=== PATIENT | female | born 1965 | race Caucasian/White ===

== ENCOUNTER 2016-09-05 10:19 | Emergency (ER) | payer OTHER ==
[~2016-09-05] VITALS: Ht 160 cm; Wt 80.7 kg
[~2016-09-05 10:19] MED LIST: ALPR.25T PO; ALPR.5T PO; ALPR0.254 PO; ALPR0.5T PO; DCS100C PO; ESTR-2 PO; FLUC200T45 PO; HYDR-3714 PO; HYDR25TA4 PO; HYDR50TA3 PO; LEVO125T PO; LEVO175T5 PO; LISI10TA2 PO; LVT.15T PO; PANT40TA2 PO; SERT50TA2 PO; SNN187T PO; SRTR100T PO; SUCR1TAB36 PO; TRM50T PO
[2016-09-05] MEDS ORDERED: ONDANSETRON 4 MG/2 ML (SDV) Z0FRAN ONE (10:24)
[2016-09-05] MEDS ORDERED: NS IV 1000 ML 1,000 ML IV ONE (10:24)
[2016-09-05] MEDS ORDERED: KETOROLAC 30 MG/ML VIAL ONE (10:24)
[2016-09-05] MEDS ORDERED: ONDANSETRON 4 MG/2 ML (SDV) Z0FRAN IVP ONE (10:30)
[2016-09-05] MEDS ORDERED: KETOROLAC 30 MG/ML VIAL IVP ONE (10:30)
[2016-09-05 10:33] LABS: BASOPHILS % (AUTO) 0 % (0-10); EOSINOPHILS # (AUTO) 0.1 10^3/uL (0.0-0.3); EOSINOPHILS % (AUTO) 1 % (0-10); LYMPHOCYTES # (AUTO) 2.3 X 10^3 (1.0-4.0); LYMPHOCYTES % (AUTO) 22 % (12-44); MEAN CORPUSCULAR HEMOGLOBIN 28 PG (25-34); MEAN CORPUSCULAR HGB CONC 34 G/DL (32-36); MEAN CORPUSCULAR VOLUME 83 FL (80-99); MEAN PLATELET VOLUME 10.6 FL (7.4-10.4); MONOCYTES # (AUTO) 0.7 X 10^3 (0.0-1.0); MONOCYTES % (AUTO) 7 % (0-12); NEUTROPHILS # (AUTO) 7.3 X 10^3 (1.8-7.8); NEUTROPHILS % (AUTO) 70 % (42-75); PLATELET COUNT 274 10^3/uL (130-400); RED BLOOD COUNT 4.79 10^6/uL (4.35-5.85); RED CELL DISTRIBUTION WIDTH 13.7 % (10.0-14.5); WHITE BLOOD COUNT 10.4 10^3/uL (4.3-11.0)
[2016-09-05] MEDS ORDERED: fentaNYL INJECTION 100 MCG/2 ML AMP ONE (10:34)
[2016-09-05] MEDS ORDERED: fentaNYL INJECTION 100 MCG/2 ML AMP IVP ONE (10:45)
[2016-09-05] MEDS ORDERED: B/P MEDICATION PO (10:48)
[2016-09-05 10:49] LABS: ALANINE AMINOTRANSFERASE 17 U/L (0-55); ANION GAP 15 MMOL/L (5-14); ASPARTATE AMINO TRANSFERASE 16 U/L (5-34); BILIRUBIN,TOTAL 0.4 MG/DL (0.1-1.0); BLOOD UREA NITROGEN 14 MG/DL (7-18); BUN/CREATININE RATIO 21; CALCIUM 9.3 MG/DL (8.5-10.1); CARBON DIOXIDE 23 MMOL/L (21-32); CHLORIDE 104 MMOL/L (98-107); CREATININE SERUM 0.67 MG/DL (0.60-1.30); GFR ESTIMATED > 60; GLUCOSE 106 MG/DL (70-105); POTASSIUM 3.3 MMOL/L (3.6-5.0); SODIUM 142 MMOL/L (135-145); TOTAL PROTEIN 7.4 G/DL (6.4-8.2)
[2016-09-05 11:40] LABS: BILIRUBIN,URINE NEGATIVE (NEGATIVE); KETONES,URINE 1+ (NEGATIVE); LEUKOCYTE ESTERASE ,URINE 1+ (NEGATIVE); NITRITE,URINE NEGATIVE (NEGATIVE); PH,URINE 7 (5-9); PROTEIN,URINE 1+ (NEGATIVE); UROBILINOGEN,URINE NORMAL (NORMAL)
[2016-09-05] MEDS ORDERED: NS 100 ML (IVPB) BAG IV ONE (12:15)
[2016-09-05] MEDS ORDERED: IOHEXOL 350 MG/ML 100 ML (OMNIPAQUE 350) VIAL IV ONE (12:15)
--- NOTE | 2016-09-05 12:46 | Diagnostic Imaging Report ---
PROCEDURE: CT abdomen and pelvis with contrast. TECHNIQUE: Multiple contiguous axial images were obtained through the abdomen and pelvis after administration of intravenous contrast. INDICATION: Left-sided abdominal pain. UTI. COMPARISON: 07/05/2007 FINDINGS: Included views of the lung bases are clear. CT ABDOMEN: There is moderate asymmetric prominence of the right renal pelvis and calyces. The right ureter is relatively decompressed. Multiple nonobstructive right renal calculi are seen. No renal or ureteral calculi are seen on the left. Additionally, there is no hydroureteronephrosis or other evidence of obstruction on the left. No renal mass type lesions are identified on either side. The spleen, pancreas, adrenal glands, and liver have an unremarkable CT appearance. Small bowel loops are nondistended. Normal appendix cannot adequately identified, but there is no pericecal inflammation. Postsurgical changes of previous gastric lap band placement are identified. There is no loculated fluid collection, free fluid or free air within the abdomen. No abnormal mesenteric or retroperitoneal adenopathy is seen. Bony structures show no acute abnormalities. CT PELVIS: A small amount of free fluid is noted within the pelvis. There is no loculated fluid collection or free air. The urinary bladder is grossly unremarkable. The bony structures show no acute abnormality. IMPRESSION: 1. Asymmetric moderate prominence of the right renal pelvis and calyces with relative decompressed appearance of the right ureter. Findings could be on the basis of underlying UPJ obstruction. 2. Multiple nonobstructive right renal calculi are also noted. Other considerations include recently passed stone. Correlation with nuclear medicine Lasix exam may be of benefit. 3. A small amount of free fluid within the pelvis. Dictated by: Dictated on workstation # [id number]
--- NOTE | 2016-09-05 13:02 | ED Abdominal Pain ---
General Chief Complaint: Abdominal/GI Problems Stated Complaint: SEVERE ABD PAIN Nursing Triage Note: PT ARRIVED PER EMS, PT CO OF SEVERE L SIDED ABD PAIN W SUDDEN ONSET APPROX 1 HR AGO, PT STATES HAD HAD LAP BAND, HAD EPISODE OF SWEATING AND SOME NAUSEA Sepsis Screen: No Definite Risk Source of Information: Patient Exam Limitations: No Limitations History of Present Illness Time Seen By Provider: 10:20 Initial Comments This 51-year-old woman presents to the emergency room with severe left-sided abdominal pain that started suddenly while she was walking at work. 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 She has a history of renal stones and states this may be a similar type of pain. She presents via EMS. She is in significant distress upon arrival. She has slight nausea but denies any other symptoms. She felt fine when she arrived at work this morning. She denies any notable urinary changes. Allergies and Home Medications Allergies Coded Allergies: erythromycin base (Verified Adverse Reaction, Unknown, NAUSEA, 09/05/16) Home Medications Unknown Dose PO DAILY (Reported) Hydrocodone/Acetaminophen 1 Each Tablet #10 1 EACH PO Q4H PRN PRN PAIN Prescribed by: PAT MOON on 09/05/16 1448 Ondansetron 4 Mg Tab.rapdis #10 4 MG SL Q4H PRN PRN NAUSEA/VOMITING Prescribed by: PAT MOON on 09/05/16 1448 Review of Systems Constitutional: no symptoms reported EENTM: No Symptoms Reported Respiratory: No Symptoms Reported Cardiovascular: No Symptoms Reported Gastrointestinal: See HPI Genitourinary: See HPI Musculoskeletal: no symptoms reported Skin: no symptoms reported Psychiatric/Neurological: No Symptoms Reported Endocrine: No Symptoms Reported Past Cxgfktp-Lgvzdq-Ndymlw Hx Patient Social History Alcohol Use: Denies Use Recreational Drug Use: No Smoking Status: Never a Smoker Recent Foreign Travel: No Contact w/Someone Who Travel: No Recent Infectious Disease Expo: No Recent Hopitalizations: No Immunizations Up To Date Date of Influenza Vaccine: Mar 21, 2016 Seasonal Allergies Seasonal Allergies: No Surgeries HX Surgeries: Yes (LAP BAND) Surgeries: Hysterectomy Respiratory Hx Respiratory Disorders: No Cardiovascular Hx Cardiac Disorders: Yes Cardiac Disorders: Hypertension Neurological Hx Neurological Disorders: No 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 Genitourinary Hx Genitourinary Disorders: Yes Genitourinary Disorders: Kidney Stones Gastrointestinal Hx Gastrointestinal Disorders: Yes Gastrointestinal Disorders: Ulcer Musculoskeletal Hx Musculoskeletal Disorders: No Endocrine Hx Endocrine Disorders: Yes Endocrine Disorders: Hypothyroidsim HEENT HX ENT Disorders: No Cancer Hx Cancer: No Psychosocial Hx Psychiatric Problems: No Integumentary HX Skin/Integumentary Disorder: No Blood Transfusions Hx Blood Disorders: No Physical Exam Vital Signs VS - Last 72 Hours, by Label 09/05/16 10:20 Temp 98.2 Pulse 95 Resp 18 B/P 172/97 Pulse Ox 100 Capillary Refill : Less Than 3 Seconds General Appearance: WD/WN moderate distress HEENT: PERRL/EOMI normal ENT inspection pharynx normal Neck: normal inspection Respiratory: lungs clear normal breath sounds no respiratory distress no accessory muscle use Cardiovascular: regular rate, rhythm no edema no murmur Gastrointestinal: normal bowel sounds soft tenderness (left upper and lower abdomen) Extremities: normal inspection no pedal edema 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 no motor/sensory deficits alert normal mood/affect oriented x 3 Skin: normal color warm/dry Focused Exam Lactic Acid Level Laboratory Tests Test 09/05/16 10:23 Alanine Aminotransferase (ALT/SGPT) 17U/L (0-55) Albumin 4.0G/DL (3.2-4.5) Alkaline Phosphatase 98U/L (40-136) Anion Gap 15MMOL/L (5-14) H Aspartate Amino Transf (AST/SGOT) 16U/L (5-34) BUN/Creatinine Ratio 21 Blood Urea Nitrogen 14MG/DL (7-18) Calcium Level 9.3MG/DL (8.5-10.1) Carbon Dioxide Level 23MMOL/L (21-32) Chloride Level 104MMOL/L (98-107) Creatinine 0.67MG/DL (0.60-1.30) Estimat Glomerular Filtration Rate > 60 Free Thyroxine 1.86NG/DL (0.70-1.48) H Glucose Level 106MG/DL (70-105) H Lipase 25U/L (8-78) Potassium Level 3.3MMOL/L (3.6-5.0) L Sodium Level 142MMOL/L (135-145) Thyroid Stimulating Hormone (TSH) 0.01UIU/ML (0.35-4.94) L Total Bilirubin 0.4MG/DL (0.1-1.0) Total Protein 7.4G/DL (6.4-8.2) Progress/Results/Core Measures Results/Orders Lab Results Laboratory Tests Test 09/05/16 10:23 09/05/16 11:05 Range/Units Alanine Aminotransferase (ALT/SGPT) 17 0-55 U/L Albumin 4.0 3.2-4.5 G/DL Alkaline Phosphatase 98 40-136 U/L Anion Gap 15 H 5-14 MMOL/L Aspartate Amino Transf (AST/SGOT) 16 5-34 U/L BUN/Creatinine Ratio 21 Basophils # (Auto) 0.0 0.0-0.1 10^3/uL Basophils (%) (Auto) 0 0-10 % Blood Urea Nitrogen 14 7-18 MG/DL Calcium Level 9.3 8.5-10.1 MG/DL Carbon Dioxide Level 23 21-32 MMOL/L Chloride Level 104 98-107 MMOL/L Creatinine 0.67 0.60-1.30 MG/DL Eosinophils # (Auto) 0.1 0.0-0.3 10^3/uL Eosinophils (%) (Auto) 1 0-10 % Estimat Glomerular Filtration Rate > 60 Free Thyroxine 1.86 H 0.70-1.48 NG/DL Glucose Level 106 H 70-105 MG/DL Hematocrit 40 35-52 % Hemoglobin 13.4 11.5-16.0 G/DL Lipase 25 8-78 U/L Lymphocytes # (Auto) 2.3 1.0-4.0 X 10^3 Lymphocytes (%) (Auto) 22 12-44 % Mean Corpuscular Hemoglobin 28 25-34 PG Mean Corpuscular Hemoglobin Concent 34 32-36 G/DL Mean Corpuscular Volume 83 80-99 FL Mean Platelet Volume 10.6 H 7.4-10.4 FL Monocytes # (Auto) 0.7 0.0-1.0 X 10^3 Monocytes (%) (Auto) 7 0-12 % Neutrophils # (Auto) 7.3 1.8-7.8 X 10^3 Neutrophils (%) (Auto) 70 42-75 % Platelet Count 274 130-400 10^3/uL Potassium Level 3.3 L 3.6-5.0 MMOL/L Red Blood Count 4.79 4.35-5.85 10^6/uL Red Cell Distribution Width 13.7 10.0-14.5 % Sodium Level 142 135-145 MMOL/L Thyroid Stimulating Hormone (TSH) 0.01 L 0.35-4.94 UIU/ML Total Bilirubin 0.4 0.1-1.0 MG/DL Total Protein 7.4 6.4-8.2 G/DL White Blood Count 10.4 4.3-11.0 10^3/uL Urine Bacteria MODERATE H /HPF Urine Bilirubin NEGATIVE NEGATIVE Urine Casts NONE /LPF Urine Clarity CLEAR Urine Color YELLOW Urine Crystals NONE /LPF Urine Culture Indicated YES Urine Glucose (UA) NEGATIVE NEGATIVE Urine Ketones 1+ H NEGATIVE Urine Leukocyte Esterase 1+ H NEGATIVE Urine Mucus SMALL H /LPF Urine Nitrite NEGATIVE NEGATIVE Urine Protein 1+ H NEGATIVE Urine RBC NONE /HPF Urine RBC (Auto) 1+ H NEGATIVE Urine Specific [place] 1.015 L 1.016-1.022 Urine Squamous Epithelial Cells 5-10 /HPF Urine Urobilinogen NORMAL NORMAL MG/DL Urine WBC 5-10 H /HPF Urine pH 7 5-9 My Orders Orders-PAT VALLADARES MD Ondansetron Injection (Zofran Injectio (09/05/16 10:30) Ketorolac Injection (Toradol Injection) (09/05/16 10:30) Saline Lock/Iv-Start (09/05/16 10:24) Ns Iv 1000 Ml (Sodium Chloride 0.9%) (09/05/16 10:24) Ondansetron Injection (Zofran Injectio (09/05/16 10:24) Ketorolac Injection (Toradol Injection) (09/05/16 10:24) Cbc With Automated Diff (09/05/16 10:26) Comprehensive Metabolic Panel (09/05/16 10:26) Ua Culture If Indicated (09/05/16 10:26) Fentanyl Injection (Sublimaze Injection (09/05/16 10:45) Fentanyl Injection (Sublimaze Injection (09/05/16 10:34) Urine Culture (09/05/16 11:05) Ct Abdomen/Pelvis W (09/05/16 12:00) Iohexol Injection (Omnipaque 350 Mg/Ml 1 (09/05/16 12:15) Ns (Ivpb) (Sodium Chloride 0.9% Ivpb Bag (09/05/16 12:15) Lipase (09/05/16 13:10) Free T4 (Free Thyroxine) (09/05/16 13:10) Thyroid Stimulating Hormone (09/05/16 13:10) Potassium Chloride (Tablet) (Klor Con Ta (09/05/16 14:45) Medications Given in ED Current Medications Medications Dose Ordered Sig/Chitra Route Start Time Stop Time Status Last Admin Dose Admin Fentanyl Citrate 75 mcg ONCE ONCE IVP 09/05/16 10:45 09/05/16 10:46 DC 09/05/16 10:38 75 MCG Iohexol 100 ml ONCE ONCE IV 09/05/16 12:15 09/05/16 12:16 DC 09/05/16 12:18 100 ML Ketorolac Tromethamine 30 mg 30 mg ONCE ONCE IVP 09/05/16 10:30 09/05/16 10:31 DC 09/05/16 10:30 30 MG Ondansetron HCl 4 mg ONCE ONCE IVP 09/05/16 10:30 09/05/16 10:31 DC 09/05/16 10:31 4 MG Potassium Chloride 20 meq ONCE ONCE PO 09/05/16 14:45 09/05/16 14:47 DC 09/05/16 14:48 20 MEQ Sodium Chloride 100 ml ONCE ONCE IV 09/05/16 12:15 09/05/16 12:16 DC 09/05/16 12:18 100 ML Sodium Chloride 1,000 ml @ 0 mls/hr Q0M ONCE IV 09/05/16 10:24 09/05/16 10:27 DC 09/05/16 10:29 1,000 MLS/HR Vital Signs/I&O Vital Sign - Last 12Hours 09/05/16 10:20 Temp 98.2 Pulse 95 Resp 18 B/P 172/97 Pulse Ox 100 Blood Pressure Mean: 122 Progress Note #1: Time: 13:08 Progress Note Patient's pain is much improved although she still has some tenderness. CT failed to reveal any indication for the etiology of her pain. She may have had a renal stone that has already passed. Lipase was not on the original labs and will be added. Patient also requests that her thyroid be checked as she is due for a thyroid test and she is rather hypertensive today. Additional labs were ordered. Patient was experiencing hypoxia while under the influence of fentanyl. Oxygen supplementation by nasal cannula was applied. Hypoxia has now resolved. Patient is no longer requiring supplemental oxygen. Progress Note #2: Time: 14:45 Progress Note Lipase was normal. Thyroid abnormalities were communicated to patient and she was instructed to follow-up with Dr. Clark. 20 mEq of potassium were given prior to dismissal. Diagnostic Imaging Diagonstic Imaging: CT Plain Films/CT/US/NM/MRI: abdomen, pelvis Comments CT abdomen and pelvis viewed by me and report reviewed. See report below: NAME: PHUC ROBERTS [facility] REC#: [id number] PT STATUS: REG ER : 1965 PHYSICIAN: PAT VALLADARES MD ADMIT DATE: 09/05/16/ER Draft Date of Exam:09/05/16 CT ABDOMEN/PELVIS W PROCEDURE: CT abdomen and pelvis with contrast. TECHNIQUE: Multiple contiguous axial images were obtained through the abdomen and pelvis after administration of intravenous contrast. INDICATION: Left-sided abdominal pain. UTI. COMPARISON: 07/05/2007 FINDINGS: Included views of the lung bases are clear. CT ABDOMEN: There is moderate asymmetric prominence of the right renal pelvis and calyces. The right ureter is relatively decompressed. Multiple nonobstructive right renal calculi are seen. No renal or ureteral calculi are seen on the left. Additionally, there is no hydroureteronephrosis or other evidence of obstruction on the left. No renal mass type lesions are identified on either side. The spleen, pancreas, adrenal glands, and liver have an unremarkable CT appearance. Small bowel loops are nondistended. Normal appendix cannot adequately identified, but there is no pericecal inflammation. Postsurgical changes of previous gastric lap band placement are identified. There is no loculated fluid collection, free fluid or free air within the abdomen. No abnormal mesenteric or retroperitoneal adenopathy is seen. Bony structures show no acute abnormalities. CT PELVIS: A small amount of free fluid is noted within the pelvis. There is no loculated fluid collection or free air. The urinary bladder is grossly unremarkable. The bony structures show no acute abnormality. IMPRESSION: 1. Asymmetric moderate prominence of the right renal pelvis and calyces with relative decompressed appearance of the right ureter. Findings could be on the basis of underlying UPJ obstruction. 2. Multiple nonobstructive right renal calculi are also noted. Other considerations include recently passed stone. Correlation with nuclear medicine Lasix exam may be of benefit. 3. A small amount of free fluid within the pelvis. Dictated on workstation # [id number] Dict: 09/05/16 1235 Trans: 09/05/16 1246 [facility] [id number] Interpreted by: FIDENCIO ESTRADA Departure Impression Impression: Primary Impression: Left sided abdominal pain of unknown cause Additional Impressions: Nausea Hypoxic episode Thyroid dysfunction Disposition: HOME, SELF-CARE Condition: Improved Departure-Patient Inst. Decision time for Depature: 14:30 Referrals: KYLIE CLARK MD (PCP/Family) Primary Care Physician Patient Instructions: Acute Abdomen (Belly Pain), Adult (DC) Add. Discharge Instructions: You may use ibuprofen for pain. Add hydrocodone as prescribed for pain not controlled by ibuprofen. If hydrocodone is used, consider using a stool softener as well. Follow-up with your doctor next week. Return to the emergency room if symptoms worsen. Please note he had some abrupt drops in your oxygen saturation after receiving fentanyl. I suggest you discuss with your primary care provider and consider screening for sleep apnea. All discharge instructions reviewed with patient and/or family. Voiced understanding. Scripts Ondansetron (Zofran Odt)4 Mg Tab.rapdis4 Mg SL Q4H PRN NAUSEA/VOMITING #10 TAB Prov:PAT VALLADARES MD 09/05/16 Hydrocodone/Acetaminophen (Hydrocodon -Acetaminophen 5-325)1 Each Tablet1 Each PO Q4H PRN PAIN #10 TAB Prov:PAT VALLADARES MD 09/05/16 Copy Copies To 1: FELIX CLARK MD, JOSHUA T MD Sep 05, 2016 13:02
[2016-09-05 13:50] LABS: THYROID STIMULATING HORMONE 0.01 UIU/ML (0.35-4.94)
[2016-09-05] MEDS ORDERED: KCL 10 MEQ TAB (MICRO K) PO ONE (14:45)
[2016-09-05] MEDS ORDERED: HYDR-3812 PO (14:48)
[2016-09-05] MEDS ORDERED: ONDA4TAB8 SL (14:48)
[2016-09-05 14:53] VITALS: BP 127/68
[2016-09-05] MEDS ORDERED: CEPH-507 PO (14:54)
== END 2016-09-05 14:53 | disposition home or self-care (01) ==
LOC: EDBD 10:20 → MERGE 10:20 → ER 10:20
DX: R10.32 Left lower quadrant pain (principal); N20.0 Calculus of kidney; R11.0 Nausea; R09.02 Hypoxemia; E07.9 Disorder of thyroid, unspecified; I10 Essential (primary) hypertension; Z98.84 Bariatric surgery status
CPT/HCPCS: 36415; 74177; 80053; 81000; 83690; 84439; 84443; 85025; 87088; 96361; 96374; 96375

== ENCOUNTER 2018-05-02 09:27 | Outpatient (RCR) | payer BC ==
[2018-04-20] MEDS: IRON SUCROSE 200 MG/10 ML (VENOFER) VIAL IV SCH (13:11)
[2018-04-20 13:12] VITALS: BP 137/77
[2018-04-22] MEDS: IRON SUCROSE 200 MG/10 ML (VENOFER) VIAL IV SCH (15:44)
[2018-04-22 16:25] VITALS: BP 148/86
[2018-04-25] MEDS: IRON SUCROSE 200 MG/10 ML (VENOFER) VIAL IV SCH (09:55)
[2018-04-25 10:00] VITALS: BP 149/89
[2018-04-27] MEDS: IRON SUCROSE 200 MG/10 ML (VENOFER) VIAL IV SCH (09:38)
[2018-04-27 09:46] VITALS: BP 133/76
[~2018-05-02] VITALS: Ht 154.9 cm; Wt 71.9 kg
[~2018-05-02 09:27] MED LIST changes: +ACHD5005 PO; +B/P MEDICATION PO; +CEPH-507 PO; +IRON SUCROSE 200 MG/10 ML (VENOFER) VIAL IV SCH; +ONDA4TAB8 SL
[2018-05-02] MEDS ORDERED: IRON SUCROSE 200 MG/10 ML (VENOFER) VIAL IV ONE (09:35)
[2018-05-02 09:58] VITALS: BP 137/89
== END 2018-07-19 | disposition home or self-care (01) ==
LOC: SDC 09:27
PROVIDERS: ATTEND Nurse Practitioner Family
DX: D50.9 Iron deficiency anemia, unspecified (principal)
CPT/HCPCS: 96365

== ENCOUNTER 2019-06-02 17:01 | Emergency (ER) | payer BC ==
[~2019-06-02] VITALS: Ht 157 cm; Wt 67.7 kg
[~2019-06-02 17:01] MED LIST changes: -IRON SUCROSE 200 MG/10 ML (VENOFER) VIAL IV SCH
[2019-06-02] MEDS ORDERED: KETOROLAC 30 MG/ML VIAL IVP ONE (17:30)
[2019-06-02] MEDS ORDERED: NS IV 1000 ML 1,000 ML IV SCH (17:30)
[2019-06-02] MEDS ORDERED: ONDANSETRON 4 MG/2 ML (SDV) Z0FRAN IVP ONE (17:30)
--- NOTE | 2019-06-02 17:31 | ED GI ---
General Chief Complaint: Abdominal/GI Problems Stated Complaint: FEVER, VOMITING, ABD PAIN Nursing Triage Note: Patient ambulatory to ER triage room with spouse with complaint of intermittent fever x 3 weeks. Patient states within the last 5 days she has been vomiting and now has muscle crmaps. She is also complaining of right lower quadrant pain radiating into her right lower back/flank area. Sepsis Screen: Possible Severe Sepsis Risk Source of Information: Patient Exam Limitations: No Limitations History of Present Illness Date Seen by Provider: Jun 02, 2019 Time Seen by Provider: 17:30 Initial Comments To ER with reports of intermittent fever for a couple of weeks, muscle cramps and fatigue after 5 days of poor fluid tolerance due to nausea and vomiting, intermittent right lower abdominal pain. Timing/Duration: 1-2 Days Severity/Quality: Moderate Radiation: No Radiation Activities at Onset: None Associated Symptoms: Nausea/Vomiting Allergies and Home Medications Allergies Coded Allergies: erythromycin base (Verified Allergy, Unknown, 02/10/10) Home Medications Alprazolam 0.25 Mg Tablet, 0.25 MG PO TID PRN for ANXIETY, (Reported) Cephalexin 500 Mg Capsule, 500 MG PO QID Prescribed by: PAT MOON on 09/05/16 1454 Hydrocodone Bit/Acetaminophen 1 Each Tablet, 1 EACH PO Q4H PRN for PAIN Prescribed by: PAT MOON on 09/05/16 1448 Levothyroxine Sodium 175 Mcg Tablet, 175 MCG PO DAILY, (Reported) Lisinopril 10 Mg Tablet, 10 MG PO DAILY, (Reported) Ondansetron 4 Mg Tab.rapdis, 4 MG SL Q4H PRN for NAUSEA/VOMITING Prescribed by: PAT MOON on 09/05/16 1448 Ondansetron 8 Mg Tab.rapdis, 8 MG PO Q6H PRN for NAUSEA/VOMITING Prescribed by: NUBIA LEE on 06/02/19 1900 Pantoprazole Sodium 40 Mg Tablet.dr, 40 MG PO BID, (Reported) Sertraline HCl 50 Mg Tablet, 50 MG PO DAILY, (Reported) Sucralfate 1 Gm Tablet, 1 GM PO ACHS, (Reported) Tramadol Hcl 50 Mg Tab, 100 MG PO BID, (Reported) take 2 (50mg) tabs [B/P Medication] , Unknown Dose PO DAILY, (Reported) Patient Home Medication List Home Medication List Reviewed: Yes Review of Systems Review of Systems Constitutional: see HPI EENTM: No Symptoms Reported Respiratory: No Symptoms Reported Cardiovascular: No Symptoms Reported Gastrointestinal: See HPI, Abdominal Pain, Nausea Genitourinary: No Symptoms Reported Musculoskeletal: no symptoms reported Skin: no symptoms reported Psychiatric/Neurological: No Symptoms Reported Endocrine: No Symptoms Reported Past Eivdmbf-Cfyqaz-Biedyr Hx Patient Social History Alcohol Use: Denies Use Recreational Drug Use: No Smoking Status: Never a Smoker 2nd Hand Smoke Exposure: No Recent Foreign Travel: No Contact w/Someone Who Travel: No Recent Infectious Disease Expo: No Recent Hopitalizations: No Immunizations Up To Date Date of Pneumonia Vaccine: Mar 21, 2013 Date of Influenza Vaccine: Mar 21, 2019 Seasonal Allergies Seasonal Allergies: Yes Past Medical History Surgeries: Yes (BLADDER SLING,lap band, kidney stones) Hysterectomy, Thyroidectomy, Tubal Ligation Respiratory: Yes Currently Using CPAP: No Cardiac: Yes Hypertension Neurological: No Reproductive Disorders: No Female Reproductive Disorders: Denies [employer]ICE [employer] History: Hysterectomy Sexually Transmitted Disease: No HIV/AIDS: No Genitourinary: Yes Kidney Stones Gastrointestinal: Yes (CHRONIC CONSTIPATION) Musculoskeletal: No Degenerate Disk Disease, Arthritis Endocrine: Yes (marixa ) HEENT: No Cancer: No Psychosocial: Yes Anxiety Integumentary: No Blood Disorders: No Family Medical History Cancer (BLADDER) 19 FATHER, , Onset:50's - 60 Family history: Arthritis 19 MOTHER, , Onset:50's - 60 Family history: Hypertension G8 BROTHER, Onset:30's - 40 G8 BROTHER, Onset:30's - 40 G8 BROTHER, Onset:30's - 40 G8 BROTHER, Onset:30's - 40 G8 SISTER, Onset:30s - 40 G8 SISTER, Onset:30's - 40 G8 SISTER, Onset:30s - 40 Family history: Thyroid disorder G8 BROTHER, Onset:30's - 40 G8 BROTHER, Onset:30's - 40 G8 BROTHER, Onset:30's - 40 G8 BROTHER, Onset:30's - 40 G8 SISTER, Onset:30's - 40 G8 SISTER, Onset:30's - 40 G8 SISTER, Onset:30s - 40 History of - disorder (DEGENERATIVE DISK DISEASE, FATHER; LUPUS, FIBROMYALGIA, MOTHER.) 19 FATHER, , Onset:50's - 60 19 MOTHER, , Onset:50's - 60 Physical Exam Vital Signs Vital Signs - First Documented 06/02/19 17:04 Temp 36.9 Pulse 112 Resp 18 B/P (MAP) 148/82 (104) Pulse Ox 98 O2 Delivery Room Air Capillary Refill : Less Than 3 Seconds Height/Weight/BMI Height: 5'1.00" Weight: 158lbs. 8.0oz. [id number]; 27.00 BMI Method: General Appearance: WD/WN, no apparent distress Respiratory: no respiratory distress, no accessory muscle use Gastrointestinal: normal bowel sounds, soft, tenderness (right sided) Extremities: normal range of motion, non-tender Neurologic/Psychiatric: alert, normal mood/affect, oriented x 3 Skin: normal color, warm/dry Progress/Results/Core Measures Results/Orders Lab Results Laboratory Tests Test 06/02/19 17:18 06/02/19 17:30 Range/Units Urine Color YELLOW Urine Clarity CLEAR Urine pH 5.5 5-9 Urine Specific [place] >=1.030 1.016-1.022 Urine Protein TRACE NEGATIVE Urine Glucose (UA) NEGATIVE NEGATIVE Urine Ketones 3+ H NEGATIVE Urine Nitrite NEGATIVE NEGATIVE Urine Bilirubin 2+ H NEGATIVE Urine Urobilinogen 0.2 < = 1.0 MG/DL Urine Leukocyte Esterase NEGATIVE NEGATIVE Urine RBC (Auto) 2+ H NEGATIVE Urine RBC 10-25 H /HPF Urine WBC 2-5 /HPF Urine Squamous Epithelial Cells 2-5 /HPF Urine Crystals NONE /LPF Urine Bacteria MODERATE H /HPF Urine Casts NONE /LPF Urine Mucus MODERATE H /LPF Urine Culture Indicated YES White Blood Count 13.9 H 4.3-11.0 10^3/uL Red Blood Count 5.26 4.35-5.85 10^6/uL Hemoglobin 12.2 11.5-16.0 G/DL Hematocrit 40 35-52 % Mean Corpuscular Volume 75 L 80-99 FL Mean Corpuscular Hemoglobin 23 L 25-34 PG Mean Corpuscular Hemoglobin Concent 31 L 32-36 G/DL Red Cell Distribution Width 14.7 H 10.0-14.5 % Platelet Count 375 130-400 10^3/uL Mean Platelet Volume 10.2 7.4-10.4 FL Neutrophils (%) (Auto) 81 H 42-75 % Lymphocytes (%) (Auto) 15 12-44 % Monocytes (%) (Auto) 4 0-12 % Eosinophils (%) (Auto) 0 0-10 % Basophils (%) (Auto) 0 0-10 % Neutrophils # (Auto) 11.2 H 1.8-7.8 X 10^3 Lymphocytes # (Auto) 2.1 1.0-4.0 X 10^3 Monocytes # (Auto) 0.6 0.0-1.0 X 10^3 Eosinophils # (Auto) 0.0 0.0-0.3 10^3/uL Basophils # (Auto) 0.0 0.0-0.1 10^3/uL Sodium Level 141 135-145 MMOL/L Potassium Level 3.1 L 3.6-5.0 MMOL/L Chloride Level 94 L 98-107 MMOL/L Carbon Dioxide Level 30 21-32 MMOL/L Anion Gap 17 H 5-14 MMOL/L Blood Urea Nitrogen 17 7-18 MG/DL Creatinine 0.76 0.60-1.30 MG/DL Estimat Glomerular Filtration Rate > 60 BUN/Creatinine Ratio 22 Glucose Level 84 70-105 MG/DL Calcium Level 9.8 8.5-10.1 MG/DL Corrected Calcium 9.5 8.5-10.1 MG/DL Total Bilirubin 0.5 0.1-1.0 MG/DL Aspartate Amino Transf (AST/SGOT) 17 5-34 U/L Alanine Aminotransferase (ALT/SGPT) 6 0-55 U/L Alkaline Phosphatase 90 40-136 U/L Total Protein 8.1 6.4-8.2 GM/DL Albumin 4.4 3.2-4.5 GM/DL My Orders Orders - NUBIA LEE APRN Cbc With Automated Diff (06/02/19 17:16) Comprehensive Metabolic Panel (06/02/19 17:16) Ua Culture If Indicated (06/02/19 17:16) Ed Iv/Invasive Line Start (06/02/19 17:16) Ns Iv 1000 Ml (Sodium Chloride 0.9%) (06/02/19 17:30) Ct Abdomen/Pelvis W (06/02/19 17:16) Ondansetron Injection (Zofran Injectio (06/02/19 17:30) Ketorolac Injection (Toradol Injection) (06/02/19 17:30) Urine Culture (06/02/19 17:18) Potassium Chloride Powder (Klor Con 20 M (06/02/19 18:15) Iohexol Injection (Omnipaque 350 Mg/Ml 1 (06/02/19 18:30) Received Contrast (Hold Metformin- Contr (06/02/19 18:30) Sodium Chloride Flush (Catheter Flush Sy (06/02/19 18:30) Ns (Ivpb) (Sodium Chloride 0.9% Ivpb Bag (06/02/19 18:30) Ns Iv 500 Ml (Sodium Chloride 0.9%) (06/02/19 19:15) Promethazine Injection (Phenergan Injec (06/02/19 19:15) Potassium Cl 10meq/50ml Ivpb (Kcl 10 Meq (06/02/19 19:15) Medications Given in ED Current Medications Medications Dose Ordered Sig/Chitra Route Start Time Stop Time Status Last Admin Dose Admin Iohexol 100 ml ONCE ONCE IV 06/02/19 18:30 06/02/19 18:31 DC 06/02/19 18:24 85 ML Ketorolac Tromethamine 15 mg ONCE ONCE IVP 06/02/19 17:30 06/02/19 17:31 DC 06/02/19 17:42 15 MG Ondansetron HCl 8 mg ONCE ONCE IVP 06/02/19 17:30 06/02/19 17:31 DC 06/02/19 17:40 8 MG Potassium Chloride 40 meq ONCE ONCE PO 06/02/19 18:15 06/02/19 18:16 DC 06/02/19 19:02 40 MEQ Sodium Chloride 10 ml NEEDED PRN IV 06/02/19 18:30 06/02/19 18:24 10 ML Sodium Chloride 100 ml ONCE ONCE IV 06/02/19 18:30 06/02/19 18:31 DC 06/02/19 18:24 80 ML Vital Signs/I&O 06/02/19 17:04 Temp 36.9 Pulse 112 Resp 18 B/P (MAP) 148/82 (104) Pulse Ox 98 O2 Delivery Room Air Blood Pressure Mean: 104 POS Departure Communication (Admissions) CT abdomen and pelvis shows some thickening of the stomach and distal esophagus, no mention of the appendix and the body of the report, called Dr. Zamudio from radiology, feels that it may be at the upper limits of normal in size but no evidence of stranding or inflammation. Relayed these findings to Dr. Goldsmith, will discharge to home with some Zofran, the patient states she is already established with him and sees them rather frequently for the LAP-BAND. He would like to go on home, have the patient return to ER for any worsening pain or fevers in the meantime. He'll see her in the office next week. Prior to discharge patient did vomit the potassium supplement which was dissolved in water, we'll give her 10 mEq IV, Phenergan IV and proceed with discharge to home. Impression Primary Impression: Nausea & vomiting Additional Impression: Diarrhea Disposition: HOME, SELF-CARE Condition: Stable Departure-Patient Inst. Decision time for Depature: 18:59 Referrals: LAURIE FOSTER MD (PCP/Family) Primary Care Physician Patient Instructions: Acute Abdomen (Belly Pain), Adult (DC) Add. Discharge Instructions: 1. Nausea medication as needed 2. Return to ER for any concerns 3. All of Dr. Goldsmith, call Wednesday to make an appointment to be seen. Return to ER for any worsening abdominal pain the meantime, fevers or chills. All discharge instructions reviewed with patient and/or family. Voiced understanding. Scripts Ondansetron (Ondansetron Odt) 8 Mg Tab.rapdis 8 MG PO Q6H PRN for NAUSEA/VOMITING, #14 TAB Prov: NUBIA LEE APRN 06/02/19 NUBIA LEE APRN Jun 02, 2019 17:31 POS
[2019-06-02 17:42] LABS: CLARITY,URINE CLEAR; COLOR,URINE YELLOW; GLUCOSE, URINE (UA) NEGATIVE (NEGATIVE); KETONES,URINE 3+ (NEGATIVE); LEUKOCYTE ESTERASE ,URINE NEGATIVE (NEGATIVE); NITRITE,URINE NEGATIVE (NEGATIVE); PH,URINE 5.5 (5-9); PROTEIN,URINE TRACE (NEGATIVE)
[2019-06-02 17:44] LABS: BASOPHILS % (AUTO) 0 % (0-10); EOSINOPHILS % (AUTO) 0 % (0-10); HEMATOCRIT 40 % (35-52); HEMOGLOBIN 12.2 G/DL (11.5-16.0); LYMPHOCYTES # (AUTO) 2.1 X 10^3 (1.0-4.0); LYMPHOCYTES % (AUTO) 15 % (12-44); MEAN CORPUSCULAR HEMOGLOBIN 23 PG (25-34); MEAN CORPUSCULAR HGB CONC 31 G/DL (32-36); MEAN CORPUSCULAR VOLUME 75 FL (80-99); MEAN PLATELET VOLUME 10.2 FL (7.4-10.4); MONOCYTES # (AUTO) 0.6 X 10^3 (0.0-1.0); MONOCYTES % (AUTO) 4 % (0-12); NEUTROPHILS # (AUTO) 11.2 X 10^3 (1.8-7.8); NEUTROPHILS % (AUTO) 81 % (42-75); PLATELET COUNT 375 10^3/uL (130-400); RED CELL DISTRIBUTION WIDTH 14.7 % (10.0-14.5); WHITE BLOOD COUNT 13.9 10^3/uL (4.3-11.0)
[2019-06-02 17:55] LABS: BACTERIA,URINE MODERATE /HPF
[2019-06-02 17:56] LABS: BILIRUBIN,URINE 2+ (NEGATIVE)
[2019-06-02 18:06] LABS: ALANINE AMINOTRANSFERASE 6 U/L (0-55); ALBUMIN 4.4 GM/DL (3.2-4.5); ALKALINE PHOSPHATASE 90 U/L (40-136); BILIRUBIN,TOTAL 0.5 MG/DL (0.1-1.0); BUN/CREATININE RATIO 22; CALCIUM 9.8 MG/DL (8.5-10.1); CARBON DIOXIDE 30 MMOL/L (21-32); CHLORIDE 94 MMOL/L (98-107); CREATININE SERUM 0.76 MG/DL (0.60-1.30); GFR ESTIMATED > 60; GLUCOSE 84 MG/DL (70-105); POTASSIUM 3.1 MMOL/L (3.6-5.0); SODIUM 141 MMOL/L (135-145); TOTAL PROTEIN 8.1 GM/DL (6.4-8.2)
[2019-06-02] MEDS ORDERED: KCL 20 MEQ POWDER FOR ORAL SOLUTION PO ONE (18:15)
[2019-06-02] MEDS ORDERED: HOLD METFORMIN - RECEIVED CONTRAST 20 ML VIAL IV SCH (18:30)
[2019-06-02] MEDS ORDERED: CATHETER FLUSH 10 ML SYR IV PRN (18:30)
[2019-06-02] MEDS ORDERED: NS 100 ML (IVPB) BAG IV ONE (18:30)
[2019-06-02] MEDS ORDERED: IOHEXOL 350 MG/ML 100 ML (OMNIPAQUE 350) VIAL IV ONE (18:30)
--- NOTE | 2019-06-02 18:47 | Diagnostic Imaging Report ---
PROCEDURE: CT abdomen and pelvis with contrast. TECHNIQUE: Multiple contiguous axial images were obtained through the abdomen and pelvis after administration of intravenous contrast. Auto Exposure Controls were utilized during the CT exam to meet ALARA standards for radiation dose reduction. INDICATION: Uncontrollable vomiting, abdominal pain, fever times approximately five days. CORRELATION STUDY: 08/26/2016. FINDINGS: There is presence of a gastric Lap-Band which has a similar orientation. The stomach proximal to this is distended and fluid filled. There is also fluid distention of the low esophagus with some circumferential wall thickening of the visualized lower esophagus. The portions of the stomach coursing through the ring do appear to be somewhat thickened, there is somewhat of a tortuous course of the stomach. The Lap-Band port is noted in the right upper abdominal subcutaneous tissues. There is rather a large amount of catheter within the abdomen coursing into the pelvis. The lung bases are clear. Heart size is normal. The liver is with slight fatty infiltration. No focal lesion. Gallbladder, pancreas, spleen, and adrenal glands are unremarkable. Nonobstructing right renal stones. Abdominal aorta is nonaneurysmal. The remainder of the gastrointestinal tract demonstrates no small bowel obstruction. Colon is unremarkable. The appendix is not well-defined, what may be the appendix has a generally unremarkable appearance. No abdominal ascites or free air. Urinary bladder is decompressed. Uterus is absent. IMPRESSION: 1. Gastric Lap-Band remains in similar orientation. There is noted distention with fluid of the stomach proximal to the Lap-Band as well as low esophagus with some areas of wall thickening of the stomach and lower esophagus. This includes suggestion of some gastric wall thickening coursing through the Lap-Band. 2. Nonobstructing right renal stones. Dictated by: Dictated on workstation # [id number]
[2019-06-02] MEDS ORDERED: ONDA8TAB13 PO (19:00)
--- NOTE | 2019-06-02 19:12 | NUR ---
Pt unable to tolerate oral potassium. Sidney Taylor notified.
[2019-06-02] MEDS ORDERED: POTASSIUM CL 10MEQ/50ML IVPB 50 ML IV ONE (19:15)
[2019-06-02] MEDS ORDERED: NS IV 500 ML 500 ML IV SCH (19:15)
[2019-06-02] MEDS ORDERED: PROMETHAZINE INJ 25 MG/ML (PHENERGAN) AMP IVP ONE (19:15)
[2019-06-02 20:30] VITALS: BP 149/82
[2019-06-05] MEDS ORDERED: SUCR1ORA5 PO (09:17)
[2019-06-05] MEDS ORDERED: LEVO150T6 PO (09:17)
[2019-06-05] MEDS ORDERED: TRAM50TA2 PO (09:28)
[2019-06-05] MEDS ORDERED: ONDA8TAB13 PO (09:28)
[2019-06-05] MEDS ORDERED: MAG355OR16 PO (09:30)
[2019-06-05] MEDS ORDERED: HYDR-34 PO (17:32)
== END 2019-06-02 20:30 | disposition home or self-care (01) ==
LOC: EDUNIT# 17:01 → ER 17:02
DX: R11.2 Nausea with vomiting, unspecified (principal); R19.7 Diarrhea, unspecified; I10 Essential (primary) hypertension; F41.9 Anxiety disorder, unspecified; Z88.1 Allergy status to other antibiotic agents; Z87.442 Personal history of urinary calculi; Z90.710 Acquired absence of both cervix and uterus; Z98.51 Tubal ligation status; Z82.49 Family history of ischemic heart disease and other diseases of the circulatory system; Z85.51 Personal history of malignant neoplasm of bladder
CPT/HCPCS: 36415; 74177; 80053; 81000; 85025; 87088

== ENCOUNTER 2019-07-23 11:47 | Observation (INO) | payer SELFPAY ==
[~2019-07-23] VITALS: Ht 157 cm; Wt 71.0 kg
[~2019-07-23 11:47] MED LIST changes: +HYDR-34 PO; +LEVO150T6 PO; +MAG355OR16 PO; +ONDA8TAB13 PO; +SUCR1ORA5 PO
[2019-07-23] MEDS ORDERED: NS IV 1000 ML 1,000 ML IV ONE (14:16)
[2019-07-23 14:26] LABS: BASOPHILS % (AUTO) 0 % (0-10); EOSINOPHILS # (AUTO) 0.1 10^3/uL (0.0-0.3); EOSINOPHILS % (AUTO) 0 % (0-10); HEMATOCRIT 40 % (35-52); HEMOGLOBIN 12.5 G/DL (11.5-16.0); LYMPHOCYTES # (AUTO) 3.4 X 10^3 (1.0-4.0); LYMPHOCYTES % (AUTO) 23 % (12-44); MEAN CORPUSCULAR HEMOGLOBIN 22 PG (25-34); MEAN CORPUSCULAR HGB CONC 32 G/DL (32-36); MEAN CORPUSCULAR VOLUME 70 FL (80-99); MEAN PLATELET VOLUME 11.2 FL (7.4-10.4); MONOCYTES # (AUTO) 1.3 X 10^3 (0.0-1.0); MONOCYTES % (AUTO) 9 % (0-12); NEUTROPHILS # (AUTO) 10.3 X 10^3 (1.8-7.8); NEUTROPHILS % (AUTO) 68 % (42-75); PLATELET COUNT 552 10^3/uL (130-400); RED CELL DISTRIBUTION WIDTH 16.4 % (10.0-14.5); WHITE BLOOD COUNT 15.2 10^3/uL (4.3-11.0)
[2019-07-23] MEDS ORDERED: ONDANSETRON 4 MG/2 ML (SDV) Z0FRAN IVP ONE (14:30)
[2019-07-23 14:37] LABS: ALANINE AMINOTRANSFERASE 10 U/L (0-55); ALBUMIN 4.8 GM/DL (3.2-4.5); ALKALINE PHOSPHATASE 110 U/L (40-136); BILIRUBIN,TOTAL 0.6 MG/DL (0.1-1.0); BUN/CREATININE RATIO 36; CARBON DIOXIDE 27 MMOL/L (21-32); CHLORIDE 82 MMOL/L (98-107); CREATININE SERUM 0.83 MG/DL (0.60-1.30); GFR ESTIMATED > 60; GLUCOSE 76 MG/DL (70-105); POTASSIUM 2.8 MMOL/L (3.6-5.0); SODIUM 133 MMOL/L (135-145); TOTAL PROTEIN 8.8 GM/DL (6.4-8.2)
[2019-07-23 14:53] LABS: BASOPHILS % (MANUAL) 1 %; EOSINOPHILS % (MANUAL) 1 %; LYMPHOCYTES % (MANUAL) 22 %; MONOCYTES % (MANUAL) 6 %; NEUTROPHILS % (MANUAL) 70 %; RBC MORPH NORMAL
[2019-07-23 14:59] LABS: BILIRUBIN,URINE 1+ (NEGATIVE); CLARITY,URINE CLEAR; COLOR,URINE YELLOW; GLUCOSE, URINE (UA) NEGATIVE (NEGATIVE); KETONES,URINE 2+ (NEGATIVE); LEUKOCYTE ESTERASE ,URINE NEGATIVE (NEGATIVE); NITRITE,URINE NEGATIVE (NEGATIVE); PH,URINE 5.5 (5-9); PROTEIN,URINE NEGATIVE (NEGATIVE)
[2019-07-23 15:11] LABS: BACTERIA,URINE TRACE /HPF; SQUAMOUS EPITHELIAL CELL,UR RARE /HPF; WBC,URINE RARE /HPF
[2019-07-23] MEDS ORDERED: fentaNYL INJECTION 100 MCG/2 ML AMP IVP STA (15:14)
[2019-07-23] MEDS ORDERED: NS W/KCL 20 MEQ/L 1,000 ML IV SCH (15:15)
--- NOTE | 2019-07-23 15:18 | ED GI ---
General Chief Complaint: Abdominal/GI Problems Stated Complaint: POST OP/VOMITING Nursing Triage Note: Pt c/o nausea, vomiting, dizziness, racing heart, and a fall with no injuries last night. Pt reports lap band has slipped. Sepsis Screen: No Definite Risk Source of Information: Patient, Spouse Exam Limitations: No Limitations History of Present Illness Date Seen by Provider: Jul 23, 2019 Time Seen by Provider: 14:55 Initial Comments 54-year-old female patient presents with complaints of nausea and vomiting for several weeks after "feeling her lap band move". Patient also underwent diagnostic laparotomy with the fluid removed from the lap band, appendectomy, and EGD 06/04/[address] Goldsmith. Patient states she was told she would eventually have to have the lap band removed, but states she has lost her insurance at this time and cannot afford to have the procedure done. She reports feeling better after her last surgery until 2 weeks ago when she began having constant nausea and vomiting. She is not able to keep anything down. At times she states food and fluids will immediately come back up. Now reports dizziness with standing and ambulation. Reports falling last night due to dizziness and thinks she may have passed out but is not sure. Patient states she has not been able to keep anything down for approximately 2 weeks. Original lap band surgery was done in [address] Goldsmith. Timing/Duration: Constant, Other (2 wks) Severity/Quality: Other (moderate to severe) Location: Epigastric Radiation: RUQ, LUQ Activities at Onset: None Modifying Factors: Worsens With Eating, Worsens With Other (worse with drinking fluids. pain worse with palpation) Allergies and Home Medications Allergies Coded Allergies: No Known Drug Allergies (Unverified , 07/23/19) Home Medications Alprazolam 0.25 Mg Tablet, 0.25 MG PO DAILY PRN for ANXIETY, (Reported) Hydrocodone Bit/Acetaminophen 1 Ea Tablet, 1 EACH PO Q4H PRN for PAIN-MODERATE Prescribed by: MILAD GOLDSMITH on 06/05/19 6602 Levothyroxine Sodium 150 Mcg Tablet, 150 MCG PO DAILY, (Reported) Mag Hydrox/Aluminum Hyd/Simeth 355 Ml Oral.susp, 15 ML PO PRN PRN for HEARTBURN, (Reported) Ondansetron 8 Mg Tab.rapdis, 8 MG PO Q6H PRN for NAUSEA/VOMITING-1ST LINE, (Reported) Pantoprazole Sodium 40 Mg Tablet.dr, 40 MG PO DAILY, (Reported) Sucralfate 1 Gm/10 Ml Oral.susp, 10 ML PO TIDAC, (Reported) Tramadol HCl 50 Mg Tablet, 50-100 MG PO BID PRN for PAIN-MODERATE (5-7), (Reported) Patient Home Medication List Home Medication List Reviewed: Yes Review of Systems Review of Systems Constitutional: No chills, No diaphoresis, No fever; weakness (generalized weakness), other (fatigue) EENTM: No Symptoms Reported Respiratory: Denies Cough, Denies Orthopnea, Denies Shortness of Air, Denies SOA With Exertion, Denies Stridor, Denies Wheezing Cardiovascular: Denies Chest Pain, Denies Irregular Heart Rate; Lightheadedness, Palpitations Gastrointestinal: Denies Abdomen Distended; Abdominal Pain; Denies Blood Streaked Stools, Denies Constipated, Denies Diarrhea; Nausea, Poor Appetite, Poor Fluid Intake; Denies Rectal Bleeding; Vomiting Genitourinary: Denies Burning, Denies Frequency, Denies Flank Pain Musculoskeletal: No back pain Skin: no symptoms reported Psychiatric/Neurological: See HPI; Denies Headache, Denies Numbness, Denies Paresthesia, Denies Seizure, Denies Tingling, Denies Weakness Endocrine: No Symptoms Reported All Other Systems Reviewed Negative Unless Noted: Yes (Negative excepted noted.) Past Qnizaao-Xttdzb-Rniwvb Hx Past Med/Social Hx: Reviewed Nursing Past Med/Soc Hx Patient Social History 2nd Hand Smoke Exposure: No Recent Foreign Travel: No Contact w/Someone Who Travel: No Recent Infectious Disease Expo: No Recent Hopitalizations: No Immunizations Up To Date Date of Pneumonia Vaccine: Mar 21, 2013 Date of Influenza Vaccine: Mar 21, 2019 Seasonal Allergies Seasonal Allergies: Yes Past Medical History Surgeries: Yes (BLADDER SLING,lap band, kidney stones) Appendectomy, Hysterectomy, Thyroidectomy, Tubal Ligation Respiratory: Yes Currently Using CPAP: No Cardiac: Yes Hypertension Neurological: No Reproductive Disorders: No Female Reproductive Disorders: Denies 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 Sexually Transmitted Disease: No HIV/AIDS: No Genitourinary: Yes Kidney Stones Gastrointestinal: Yes (CHRONIC CONSTIPATION) Musculoskeletal: No Degenerate Disk Disease, Arthritis Endocrine: Yes (marixa ) HEENT: No Cancer: No Psychosocial: Yes Anxiety Integumentary: No Blood Disorders: No Family Medical History Reviewed Nursing Family Hx Cancer (BLADDER) 19 FATHER, , Onset: Family history: Arthritis 19 MOTHER, , Onset: Family history: Hypertension G8 BROTHER, Onset:30's - 40 G8 BROTHER, Onset: - 40 G8 BROTHER, Onset: - 40 G8 BROTHER, Onset: - G8 SISTER, Onset: - G8 SISTER, Onset: G8 SISTER, Onset: Family history: Thyroid disorder G8 BROTHER, Onset: - G8 BROTHER, Onset: - G8 BROTHER, Onset: - G8 BROTHER, Onset: - G8 SISTER, Onset: G8 SISTER, Onset: G8 SISTER, Onset: History of - disorder (DEGENERATIVE DISK DISEASE, FATHER; LUPUS, FIBROMYALGIA, MOTHER.) 19 FATHER, , Onset: 19 MOTHER, , Onset: No Pertinent Family Hx Physical Exam Vital Signs Vital Signs - First Documented 07/23/19 12:33 Temp 37.0 Pulse 101 Resp 15 B/P (MAP) 138/103 (115) Pulse Ox 99 O2 Delivery Room Air Capillary Refill : Less Than 3 Seconds Height/Weight/BMI Height: 5'1.00" Weight: 158lbs. 8.0oz. [id number]; 26.00 BMI Method: General Appearance: WD/WN, no apparent distress HEENT: PERRL/EOMI, pharynx normal Neck: supple, normal inspection Respiratory: lungs clear, normal breath sounds, no respiratory distress, no accessory muscle use Cardiovascular: regular rate, rhythm, no murmur Gastrointestinal: normal bowel sounds, soft, no organomegaly; No distended; guarding (epigastric); No rebound; tenderness (BUQ/epigastric); No mass Extremities: no pedal edema, no calf tenderness, normal capillary refill Back: normal inspection, no CVA tenderness Neurologic/Psychiatric: alert, normal mood/affect, oriented x 3 Skin: normal color, warm/dry Progress/Results/Core Measures Results/Orders Lab Results Laboratory Tests Test 07/23/19 12:50 07/23/19 14:29 Range/Units White Blood Count 15.2 H 4.3-11.0 10^3/uL Red Blood Count 5.71 4.35-5.85 10^6/uL Hemoglobin 12.5 11.5-16.0 G/DL Hematocrit 40 35-52 % Mean Corpuscular Volume 70 L 80-99 FL Mean Corpuscular Hemoglobin 22 L 25-34 PG Mean Corpuscular Hemoglobin Concent 32 32-36 G/DL Red Cell Distribution Width 16.4 H 10.0-14.5 % Platelet Count 552 H 130-400 10^3/uL Mean Platelet Volume 11.2 H 7.4-10.4 FL Neutrophils (%) (Auto) 68 42-75 % Lymphocytes (%) (Auto) 23 12-44 % Monocytes (%) (Auto) 9 0-12 % Eosinophils (%) (Auto) 0 0-10 % Basophils (%) (Auto) 0 0-10 % Neutrophils # (Auto) 10.3 H 1.8-7.8 X 10^3 Lymphocytes # (Auto) 3.4 1.0-4.0 X 10^3 Monocytes # (Auto) 1.3 H 0.0-1.0 X 10^3 Eosinophils # (Auto) 0.1 0.0-0.3 10^3/uL Basophils # (Auto) 0.0 0.0-0.1 10^3/uL Neutrophils % (Manual) 70 % Lymphocytes % (Manual) 22 % Monocytes % (Manual) 6 % Eosinophils % (Manual) 1 % Basophils % (Manual) 1 % Blood Morphology Comment NORMAL Sodium Level 133 L 135-145 MMOL/L Potassium Level 2.8 L 3.6-5.0 MMOL/L Chloride Level 82 L 98-107 MMOL/L Carbon Dioxide Level 27 21-32 MMOL/L Anion Gap 24 H 5-14 MMOL/L Blood Urea Nitrogen 30 H 7-18 MG/DL Creatinine 0.83 0.60-1.30 MG/DL Estimat Glomerular Filtration Rate > 60 BUN/Creatinine Ratio 36 Glucose Level 76 70-105 MG/DL Calcium Level 10.0 8.5-10.1 MG/DL Corrected Calcium 8.5-10.1 MG/DL Total Bilirubin 0.6 0.1-1.0 MG/DL Aspartate Amino Transf (AST/SGOT) 17 5-34 U/L Alanine Aminotransferase (ALT/SGPT) 10 0-55 U/L Alkaline Phosphatase 110 40-136 U/L C-Reactive Protein High Sensitivity 1.10 H 0.00-0.50 MG/DL Total Protein 8.8 H 6.4-8.2 GM/DL Albumin 4.8 H 3.2-4.5 GM/DL Urine Color YELLOW Urine Clarity CLEAR Urine pH 5.5 5-9 Urine Specific [place] >=1.030 1.016-1.022 Urine Protein NEGATIVE NEGATIVE Urine Glucose (UA) NEGATIVE NEGATIVE Urine Ketones 2+ H NEGATIVE Urine Nitrite NEGATIVE NEGATIVE Urine Bilirubin 1+ H NEGATIVE Urine Urobilinogen 0.2 < = 1.0 MG/DL Urine Leukocyte Esterase NEGATIVE NEGATIVE Urine RBC (Auto) 1+ H NEGATIVE Urine RBC NONE /HPF Urine WBC RARE /HPF Urine Squamous Epithelial Cells RARE /HPF Urine Crystals NONE /LPF Urine Bacteria TRACE /HPF Urine Casts PRESENT /LPF Urine Hyaline Casts 2-5 H /LPF Urine Mucus SMALL H /LPF Urine Culture Indicated NO My Orders Orders - EDITH ROSA Ed Iv/Invasive Line Start (07/23/19 14:16) Cbc With Automated Diff (07/23/19 14:16) Comprehensive Metabolic Panel (07/23/19 14:16) Hs C Reactive Protein (07/23/19 14:16) Ua Culture If Indicated (07/23/19 14:16) Ondansetron Injection (Zofran Injectio (07/23/19 14:30) Ns Iv 1000 Ml (Sodium Chloride 0.9%) (07/23/19 14:16) Manual Differential (07/23/19 12:50) Fentanyl Injection (Sublimaze Injection (07/23/19 15:14) Ct Abdomen/Pelvis W (07/23/19 15:14) Ns W/Kcl 20 Meq/L (Ns Iv W/Kcl 20 Meq/L) (07/23/19 15:15) Iohexol Injection (Omnipaque 350 Mg/Ml 1 (07/23/19 15:30) Received Contrast (Hold Metformin- Contr (07/23/19 15:30) Ns (Ivpb) (Sodium Chloride 0.9% Ivpb Bag (07/23/19 15:30) Ekg Tracing (07/23/19 15:27) Chest 1 View, Ap/Pa Only (07/23/19 15:27) Medications Given in ED Current Medications Medications Dose Ordered Sig/Chitra Route Start Time Stop Time Status Last Admin Dose Admin Iohexol 100 ml ONCE ONCE IV 07/23/19 15:30 07/23/19 15:31 DC 07/23/19 15:44 85 ML Ondansetron HCl 4 mg ONCE ONCE IVP 07/23/19 14:30 07/23/19 14:31 DC 07/23/19 14:26 4 MG Sodium Chloride 100 ml ONCE ONCE IV 07/23/19 15:30 07/23/19 15:31 DC 07/23/19 15:44 80 ML Sodium Chloride 1,000 ml @ 0 mls/hr Q0M ONCE IV 07/23/19 14:16 07/23/19 14:18 DC 07/23/19 14:25 1,000 MLS/HR Vital Signs/I&O 07/23/19 12:33 Temp 37.0 Pulse 101 Resp 15 B/P (MAP) 138/103 (115) Pulse Ox 99 O2 Delivery Room Air Blood Pressure Mean: 115 Initial ECG Impression Date: Jul 23, 2019 Initial ECG Impression Time: 15:49 Initial ECG Rate: 83 Initial ECG Rhythm: Normal Sinus Initial ECG Intervals: Normal Initial ECG Impression: Normal Comment No STEMI or arrhythmia noted. ECG reviewed with Dr. Sutton. Diagnostic Imaging Diagonstic Imaging: Xray Plain Films/CT/US/NM/MRI: chest Comments Date of Exam:07/23/19 CHEST 1 VIEW, AP/PA ONLY EXAMINATION: Chest 1 view HISTORY: Palpitations. COMPARISON: 11/10/2013. FINDINGS: The lung volumes are normal. No focal consolidation is seen. No large pleural effusion or pneumothorax is seen. The cardiomediastinal silhouette is normal in size and contour. No acute osseous abnormality is seen. IMPRESSION: 1. No acute pleuroparenchymal process. Dictated by: Dictated on workstation # [id number] Reviewed: Reviewed by Me (radiology report reviewed by me) Diagonstic Imaging: CT Plain Films/CT/US/NM/MRI: abdomen, pelvis Comments Date of Exam:07/23/19 CT ABDOMEN/PELVIS W EXAMINATION: CT abdomen and pelvis with intravenous contrast. TECHNIQUE: Multiple contiguous axial images were obtained through the abdomen and pelvis after the uneventful administration of intravenous contrast. All CT scans use one or more of the following dose optimizing techniques: Automated exposure control, MA and/or KvP adjustment based on a patient size and exam type, or iterative reconstruction. HISTORY: Nausea and vomiting. Appendectomy six weeks ago. COMPARISON: CT abdomen and pelvis on 06/02/2019. FINDINGS: The heart is unremarkable. The included lung bases are clear. Nonobstructing renal calculi are visualized in the right kidney, similar to the prior exam. No obstructing calculi or hydronephrosis. No perinephric fat stranding. No suspicious renal masses are present. The urinary bladder is nondistended. The liver, spleen, pancreas, and adrenal glands have a stable appearance without acute abnormality. There is no pathologically enlarged mesenteric or retroperitoneal adenopathy. Gastric band is noted in stable configuration. The bowel loops are nondilated. The appendix is surgically absent. There is no free fluid or free air. No acute osseous abnormalities. There is no free air, loculated collection, or adenopathy in the pelvis. IMPRESSION: 1. No acute inflammation, free fluid, or bowel obstruction in the abdomen and pelvis. 2. Stable configuration of the gastric band. However, if patient's symptoms of nausea and vomiting persist, recommend further evaluation of the gastric band with surgical consultation. 3. Nonobstructing renal calculi in the right kidney, unchanged compared to the prior exam. No obstructing calculi or hydronephrosis. Dictated by: Dictated on workstation # [id number] Reviewed: Reviewed by Me (radiology report reviewed by me) Departure Communication (Admissions) Time/Spoke to Admitting Phy: 16:25 Dr. Morel graciously accepts patient to her medical service for IV fluids, pain control, and antiemetics. Requests consult of Dr. Goldsmith in the a.m. Patient seen and evaluated. Labs, chest x-ray, CT abdomen/pelvis, and EKG obtained. Patient was given 1 L normal saline, 4 mg of Zofran, 50 g of fentanyl, and 1 L of normal saline with 20 mEq of potassium chloride in the ED. Patient reported mild improvement in symptoms. Patient unable to tolerate oral intake in the emergency department. Plan for admission discussed with the patient. Patient verbalizes understanding and agrees with the treatment plan. Patient case discussed with Dr. Sutton, he agrees with the plan of care. Impression Primary Impression: Intractable vomiting Qualified Codes: R11.2 - Nausea with vomiting, unspecified Additional Impressions: Intractable upper abdominal pain Volume depletion Hypokalemia malpositioned laparoscopic band Disposition: ADMITTED INPATIENT Condition: Stable Admissions Decision to Admit Reason: Admit from ER (General) Decision to Admit/Date: Jul 23, 2019 Time/Decision to Admit Time: 16:25 Departure-Patient Inst. Referrals: LAURIE FOSTER MD (PCP/Family) Primary Care Physician EDITH ROSA Jul 23, 2019 15:18
[2019-07-23] MEDS ORDERED: IOHEXOL 350 MG/ML 100 ML (OMNIPAQUE 350) VIAL IV ONE (15:30)
[2019-07-23] MEDS ORDERED: HOLD METFORMIN - RECEIVED CONTRAST 20 ML VIAL IV SCH (15:30)
[2019-07-23] MEDS ORDERED: NS 100 ML (IVPB) BAG IV ONE (15:30)
--- NOTE | 2019-07-23 16:04 | Diagnostic Imaging Report ---
EXAMINATION: Chest 1 view HISTORY: Palpitations. COMPARISON: 11/10/2013. FINDINGS: The lung volumes are normal. No focal consolidation is seen. No large pleural effusion or pneumothorax is seen. The cardiomediastinal silhouette is normal in size and contour. No acute osseous abnormality is seen. IMPRESSION: 1. No acute pleuroparenchymal process. Dictated by: Dictated on workstation # [id number]
--- NOTE | 2019-07-23 16:11 | Diagnostic Imaging Report ---
EXAMINATION: CT abdomen and pelvis with intravenous contrast. TECHNIQUE: Multiple contiguous axial images were obtained through the abdomen and pelvis after the uneventful administration of intravenous contrast. All CT scans use one or more of the following dose optimizing techniques: Automated exposure control, MA and/or KvP adjustment based on a patient size and exam type, or iterative reconstruction. HISTORY: Nausea and vomiting. Appendectomy six weeks ago. COMPARISON: CT abdomen and pelvis on 06/02/2019. FINDINGS: The heart is unremarkable. The included lung bases are clear. Nonobstructing renal calculi are visualized in the right kidney, similar to the prior exam. No obstructing calculi or hydronephrosis. No perinephric fat stranding. No suspicious renal masses are present. The urinary bladder is nondistended. The liver, spleen, pancreas, and adrenal glands have a stable appearance without acute abnormality. There is no pathologically enlarged mesenteric or retroperitoneal adenopathy. Gastric band is noted in stable configuration. The bowel loops are nondilated. The appendix is surgically absent. There is no free fluid or free air. No acute osseous abnormalities. There is no free air, loculated collection, or adenopathy in the pelvis. IMPRESSION: 1. No acute inflammation, free fluid, or bowel obstruction in the abdomen and pelvis. 2. Stable configuration of the gastric band. However, if patient's symptoms of nausea and vomiting persist, recommend further evaluation of the gastric band with surgical consultation. 3. Nonobstructing renal calculi in the right kidney, unchanged compared to the prior exam. No obstructing calculi or hydronephrosis. Dictated by: Dictated on workstation # [id number]
[2019-07-23 17:41] VITALS: BP 154/65
[2019-07-23] MEDS: NS W/KCL 20 MEQ/L 1,000 ML IV SCH (18:29)
[2019-07-23] MEDS ORDERED: ONDANSETRON 4 MG/2 ML (SDV) Z0FRAN IVP SCH (18:30)
--- NOTE | 2019-07-23 18:57 | NUR ---
PHUC ROBERTS admitted to room 418-1, with an admitting diagnosis of N, abd pain, on 07/23/19 from ED via stretcher, accompanied by staff and . PHUC ROBERTS introduced to surroundings, call light, bed controls, phone, TV, temperature control, lights, meal times, smoking policy, visitor policy, side rail policy, bathrooms and showers. Patient Rights given to patient in the handbook. PHUC ROBERTS verbalizes understanding that [facility] is not responsible for the loss or damage to any personal effects or valuables that are kept in the patients possession during their hospitalization. The following Patient Care Plans were discussed with the patient: Discharge Planning, pain management, dehydration, and medications. PHUC ROBERTS verbalizes understanding of Interdisciplinary Patient Education. Patient and/or family were informed about the Rapid Response Team and its purpose.
[2019-07-23 19:39] VITALS: BP 127/73
[2019-07-23] MEDS: PROMETHAZINE INJ 25 MG/ML (PHENERGAN) AMP IV PRN (20:39)
[2019-07-23] MEDS: KETOROLAC 30 MG/ML VIAL IV PRN (20:40)
[2019-07-23] MEDS: fentaNYL INJECTION 100 MCG/2 ML AMP IV PRN (22:09)
[2019-07-24] VITALS (7 sets, daily range): BP systolic 122–153; BP diastolic 51–85
[2019-07-24] MEDS: NS W/KCL 20 MEQ/L 1,000 ML IV SCH ×4 (01:26→22:12)
[2019-07-24] MEDS: PROMETHAZINE INJ 25 MG/ML (PHENERGAN) AMP IV PRN ×3 (01:32→14:09)
[2019-07-24] MEDS: FAMOTIDINE 20MG/2ML IV (PEPCID) IV PRN ×2 (01:32→22:12)
[2019-07-24] MEDS: fentaNYL INJECTION 100 MCG/2 ML AMP IV PRN ×5 (01:43→22:12)
[2019-07-24] MEDS: ONDANSETRON 4 MG/2 ML (SDV) Z0FRAN IV PRN ×3 (04:15→18:54)
[2019-07-24] MEDS: PANTOPRAZOLE 40 MG (PROTONIX) VIAL IV SCH (07:58)
[2019-07-24 08:33] LABS: BASOPHILS % (AUTO) 0 % (0-10); EOSINOPHILS # (AUTO) 0.2 10^3/uL (0.0-0.3); EOSINOPHILS % (AUTO) 2 % (0-10); HEMATOCRIT 31 % (35-52); HEMOGLOBIN 9.2 G/DL (11.5-16.0); LYMPHOCYTES # (AUTO) 2.4 X 10^3 (1.0-4.0); LYMPHOCYTES % (AUTO) 30 % (12-44); MEAN CORPUSCULAR HEMOGLOBIN 22 PG (25-34); MEAN CORPUSCULAR HGB CONC 30 G/DL (32-36); MEAN CORPUSCULAR VOLUME 73 FL (80-99); MEAN PLATELET VOLUME 10.1 FL (7.4-10.4); MONOCYTES # (AUTO) 0.7 X 10^3 (0.0-1.0); MONOCYTES % (AUTO) 9 % (0-12); NEUTROPHILS # (AUTO) 4.7 X 10^3 (1.8-7.8); NEUTROPHILS % (AUTO) 59 % (42-75); PLATELET COUNT 306 10^3/uL (130-400); RED CELL DISTRIBUTION WIDTH 15.6 % (10.0-14.5); WHITE BLOOD COUNT 7.9 10^3/uL (4.3-11.0)
[2019-07-24 09:00] LABS: ALANINE AMINOTRANSFERASE 8 U/L (0-55); ALBUMIN 3.3 GM/DL (3.2-4.5); ALKALINE PHOSPHATASE 72 U/L (40-136); BILIRUBIN,TOTAL 0.3 MG/DL (0.1-1.0); BUN/CREATININE RATIO 32; CALCIUM 7.8 MG/DL (8.5-10.1); CARBON DIOXIDE 24 MMOL/L (21-32); CHLORIDE 103 MMOL/L (98-107); CREATININE SERUM 0.59 MG/DL (0.60-1.30); GFR ESTIMATED > 60; POTASSIUM 3.6 MMOL/L (3.6-5.0); SODIUM 139 MMOL/L (135-145); TOTAL PROTEIN 5.8 GM/DL (6.4-8.2)
[2019-07-24 09:08] LABS: GLUCOSE 51 MG/DL (70-105)
[2019-07-24] MEDS ORDERED: DEXTROSE 50% 50 ML (IMS) SYR ONE (09:18)
--- NOTE | 2019-07-24 09:25 | NUR ---
TRANSFERRED FROM ICU PER W/C TO ROOM 405. ALERT, COOPERATIVE AND COOPERATIVE. SKIN W/D. RESP. LABORED. AT BEDSIDE. O2 ON AT 4 L PER MIN. PER N/C. NORMAL SALINE INFUSING AT 150/CC/HR. TELEMETRY ON. NEW IV SITE STARTED TO LEFT AC PER PT. REQUEST. PT. STATES EVERY TIME I BEND MY RIGHT ARM THIS IV PUMP BEEPS. SALINE LOCK TO RIGHT AC FLUSHED. WHEEZES SCATTERED JOHANNA. HEART SOUNDS REGULAR.
[2019-07-24] MEDS ORDERED: DEXTROSE 50% 50 ML (IMS) SYR IV NR (09:30)
[2019-07-24] MEDS ORDERED: DEXTROSE 50% 50 ML (IMS) SYR IV ONE (09:30)
[2019-07-24] MEDS ORDERED: ALPR0.5T7 PO (09:44)
[2019-07-24] MEDS ORDERED: ACET-2267 PO (09:47)
[2019-07-24] MEDS ORDERED: HYDR-3816 PO (09:47)
--- NOTE | 2019-07-24 12:00 | NUR ---
SPOKE WITH THE PT WELL CALLING [employer] AND [facility] TO COMPLETE THE MED REC. PT WAS ABLE TO TELL ME HOW/WHEN SHE TAKES EACH MED. CARAFATE: DIRECTIONS ARE TO TAKE TID, HOWEVER THE PT SAYS SHE USUALLY ONLY TAKES IT BID THE FOLLOWING ARE FILL DATES: 03-13-2019 XANAX #28/PRN 06-03-2019 CARAFATE #900ML/45DS 06-24-2019 LEVOTHYROXINE #30/30DS 07-17-2019 PROTONIX #30/30DS OTC MEDS: TYLENOL MAALOX Addendum: 07/24/19 at 1205 by JAYESH GONSALES CPhT PT ALSO PICKED UP HYDROCODONE #35 ON 06-06-2020
--- NOTE | 2019-07-24 13:14 | NUR ---
"RD ASSESSMENT PMHx: chronic constipation; Corrie's disease PT INTERACTION: Pt was awake and pleasant during nutrition assessment. Pt states current appetite was good, but then she started vomiting about a week ago. Note pt currently NPO, but had refused 1meal on 07/23, per chart review. Pt states following a regular diet at home, and has no issues with chewing/swallowing foods. Pt states dealing with nausea and vomiting for the past week. Note 3 episodes of emesis were recorded on 07/24, and pt currently on zofran PRN, per chart review. Pt states regularly dealing with constipation and has a BM every three days, with her last BM on 07/19. Note pt not currently on bowel regimen per chart review. Pt states recent 14# wt loss x2w. Note recent 23# wt gain x6w, per chart review. ABNORMAL NUTRITION-RELATED LAB VALUES LOW: cr 0.59; Ca 7.8; Pro 5.8 HIGH: Bun 19 Est. kcal needs: 8887-0599 kcal | 20-25 kcal/kg Est. Pro needs: 57-71 g Pro | 0.8-1.0 g Pro/kg PES STATEMENT: Inadequate oral intake (NI-2.1) related to nausea | vomiting | NPO status | loss of appetite as evidenced by pt interview | PO intake of 0% INTERVENTION: Note pt is currently NPO. Would recommend advancing diet to Clear Liquid diet, when medically able and as tolerated. Pt may benefit from nutrition supplementation if PO intake remains low. Will continue to follow and reassess as pt needs and status change. MONITOR/EVALUATE: PO Intake; Plan of Care; Hydration Status; Weight Status; Lab Values Braden Cadena, , RD, LD"
--- NOTE | 2019-07-24 14:24 | History & Physical-Hospitalist ---
History of Present Illness HPI/Chief Complaint Violeta Ewing is a 54-year-old female with past medical history of morbid obesity with LAP-BAND in place who presented with intractable nausea and vomiting. She reports that she has been having issues with nausea and vomiting for several days. She also reports that she felt like her LAP-BAND slipped out of place. She denies any fevers or chills. She denies any abdominal pain. She denies any chest pain or shortness of breath. Denies any diarrhea. She reports that she had a a surgery with Dr. Goldsmith a month or 2 ago and when she removed her appendix. She was later told that her LAP-BAND would have to be removed. Source: patient Exam Limitations: no limitations Date Seen 07/24/19 Time Seen by a Provider: 09:40 Attending Physician Lorenza Morel MD PCP Chuckie Matt MD Referring Physician Date of Admission Jul 23, 2019 at 16:32 Home Medications & Allergies Home Medications Reviewed patient Home Medication Reconciliation performed by pharmacy medication reconciliations sound technician supervisor and/or nursing. Patients Allergies have been reviewed. Allergies Allergies Coded Allergies No Known Drug Allergies (Unverified07/23/19) Past Lgxjttn-Ynbait-Yptroz Hx Past Med/Social Hx: Reviewed Nursing Past Med/Soc Hx Patient Social History Alcohol Use: Denies Use Recreational Drug Use: No 2nd Hand Smoke Exposure: No Recent Foreign Travel: No Contact w/other who traveled: No Recent Hopitalizations: No Recent Infectious Disease Expo: No Immunizations Up To Date Date of Pneumonia Vaccine: Mar 21, 2013 Date of Influenza Vaccine: Mar 21, 2019 Seasonal Allergies Seasonal Allergies: Yes Past Medical History Surgeries: Appendectomy, Hysterectomy, Thyroidectomy, Tubal Ligation Currently Using CPAP: No Cardiac: Hypertension : No Reproductive: No Sexually Transmitted Disease: No HIV/AIDS: No Female Reproductive Disorders: Denies Hysterectomy Genitourinary: Kidney Stones Musculoskeletal: Degenerate Disk Disease, Arthritis Psychosocial: Anxiety History of Blood Disorders: No Family History Reviewed Nursing Family Hx Cancer (BLADDER) 19 FATHER, , Onset:50's - 60 Family history: Arthritis 19 MOTHER, , Onset:50's - 60 Family history: Hypertension G8 BROTHER, Onset:30's - 40 G8 BROTHER, Onset:30's - 40 G8 BROTHER, Onset:30's - 40 G8 BROTHER, Onset:30's - G8 SISTER, Onset: G8 SISTER, Onset: - G8 SISTER, Onset: Family history: Thyroid disorder G8 BROTHER, Onset:30 - 40 G8 BROTHER, Onset: - 40 G8 BROTHER, Onset: - G8 BROTHER, Onset: G8 SISTER, Onset: G8 SISTER, Onset: G8 SISTER, Onset: History of - disorder (DEGENERATIVE DISK DISEASE, FATHER; LUPUS, FIBROMYALGIA, MOTHER.) 19 FATHER, , Onset: 19 MOTHER, , Onset: No Pertinent Family Hx Review of Systems Constitutional: no symptoms reported EENTM: no symptoms reported Respiratory: no symptoms reported Cardiovascular: no symptoms reported Gastrointestinal: nausea, vomiting Genitourinary: no symptoms reported Musculoskeletal: no symptoms reported Skin: no symptoms reported Psychiatric/Neurological: No Symptoms Reported Physical Exam Physical Exam Vital Signs Vital Signs - First Documented 07/23/19 12:33 Temp 37.0 Pulse 101 Resp 15 B/P (MAP) 138/103 (115) Pulse Ox 99 O2 Delivery Room Air Capillary Refill : Greater Than 3 Seconds Height, Weight, BMI Height: 5'1.00" Weight: 158lbs. 8.0oz. [id number]; 28.80 BMI Method: General Appearance: No Apparent Distress, WD/WN HEENT: PERRL/EOMI, Pharynx Normal Neck: Normal Inspection, Supple Respiratory: Lungs Clear, Normal Breath Sounds, No Respiratory Distress Cardiovascular: Regular Rate, Rhythm, No Murmur Gastrointestinal: Normal Bowel Sounds, Non Tender, Soft Extremity: Normal Inspection, Non Tender, Pedal Edema Neurologic/Psychiatric: Alert, Oriented x3, No Motor/Sensory Deficits, Normal Mood/Affect Skin: Normal Color, Warm/Dry Results Results/Procedures Labs Laboratory Tests 07/23/19 12:50 07/24/19 08:25 Patient resulted labs reviewed. Imaging: Reviewed Imaging Report Assessment/Plan Admission Diagnosis Intractable nausea and vomiting Admission Status: Observation Assessment and Plan Intractable nausea and vomiting Possible lap band complication Acute kidney injury Hypothyroidism Antiemetics ordered CT scan and with no signs of gastroenteritis or other intra-abdominal complication Consult general surgery, Dr. Goldsmith IV fluids ordered Diagnosis/Problems Diagnosis/Problems (1) Intractable nausea and vomiting Status: Acute (2) History of laparoscopic adjustable gastric banding Status: Chronic (3) Acute kidney injury Status: Acute Clinical Quality Measures DVT/VTE Risk/Contraindication: Risk Factor Score Per Nursin RFS Level Per Nursing on Admit: 1=Low/No VTE PPX JERSON MARI MD Jul 24, 2019 14:24
--- NOTE | 2019-07-24 19:07 | CONSULTATION REPORT ---
DATE OF SERVICE: 07/24/2019 ATTENDING PRIMARY CARE PHYSICIAN: Chuckie Matt MD HISTORY OF PRESENT ILLNESS: The patient is a 54-year-old female known to us. She had periumbilical pain associated with nausea and vomiting and some reflux and regurgitation issues. CT scan was performed, which did show appendix along the upper limits of normal. This was controlled by medication. She was discharged home; however, she returned two days later with worsening pain in the right lower abdominal quadrant again and she underwent a diagnostic laparoscopy and appendectomy. She again has significant nausea and vomiting. She is status post laparoscopic adjustable gastric band placement, which also appeared to have slipped inferiorly during the diagnostic laparoscopy. She reports that she is able to tolerate some liquids at times; however, at times, none at all and she will have frequent regurgitation. PAST MEDICAL HISTORY: Corrie's thyroiditis, degenerative joint disease, chronic constipation, history of nephrolithiasis, anxiety. PAST SURGICAL HISTORY: Bladder suspension, laparoscopic adjustable gastric band placement, hysterectomy, thyroidectomy. ALLERGIES: ERYTHROMYCIN. MEDICATIONS: Alprazolam, cephalexin, hydrocodone, levothyroxine, lisinopril, Protonix 40 mg b.i.d., sertraline 50 mg daily, tramadol 100 mg b.i.d. SOCIAL HISTORY: Negative smoke. Occasional alcohol. FAMILY HISTORY: Noncontributory. VITAL SIGNS: Temperature 37.1, blood pressure 124/51, pulse 71, respirations 22, pulse ox 98% on room air. REVIEW OF SYSTEMS: Well-nourished female, currently in no acute distress. She is not experiencing any shortness of breath or difficulty breathing. No chest pain, palpitations, diaphoresis. She is having recurrent episodes of reflux and regurgitation. No hematemesis, no coffee ground emesis. She does state that she is having normal bowel movements. No fever, chills. No recent inadvertent weight loss. All other review of systems negative. PHYSICAL EXAMINATION: CHEST: Clear. Good breath sounds bilaterally. HEART: Regular, no murmurs. EXTREMITIES: No lower extremity edema, negative Homans sign. HEENT: No scleral icterus. NECK: No cervical lymphadenopathy. ABDOMEN: Soft. There is pain in the left upper abdominal quadrant. No peritoneal signs. SKIN: Warm, dry. ASSESSMENT AND PLAN: A 54-year-old female with recurrent nausea and vomiting and abdominal pain in the left upper abdominal quadrant. We will proceed with a diagnostic laparoscopy and most likely removal of the adjustable gastric band. We will continue with IV hydration as well as a PPI acid svp monetization to reduce inflammation before proceeding with surgery. Job ID: [id number] DocumentID: [id number] Dictated Date: 07/24/2019 18:31:59 Pharmacy Benefits Coordinator Date: 07/24/2019 19:06:32 Dictated By: MILAD SARGENT MD
[2019-07-25] MEDS: PROMETHAZINE INJ 25 MG/ML (PHENERGAN) AMP IV PRN ×2 (02:33→21:24)
[2019-07-25] MEDS: fentaNYL INJECTION 100 MCG/2 ML AMP IV PRN ×3 (02:33→22:48)
[2019-07-25 04:05] VITALS: BP 143/81
[2019-07-25] MEDS: NS W/KCL 20 MEQ/L 1,000 ML IV SCH (06:22)
[2019-07-25] MEDS: ONDANSETRON 4 MG/2 ML (SDV) Z0FRAN IV PRN ×2 (06:23→14:53)
[2019-07-25 06:49] LABS: MEAN PLATELET VOLUME 11.1 FL (7.4-10.4); RED CELL DISTRIBUTION WIDTH 15.9 % (10.0-14.5); WHITE BLOOD COUNT 6.7 10^3/uL (4.3-11.0)
[2019-07-25 07:20] LABS: BUN/CREATININE RATIO 11; CALCIUM 7.9 MG/DL (8.5-10.1); CARBON DIOXIDE 21 MMOL/L (21-32); CHLORIDE 108 MMOL/L (98-107); CREATININE SERUM 0.55 MG/DL (0.60-1.30); GFR ESTIMATED > 60; MAGNESIUM 1.9 MG/DL (1.6-2.4); SODIUM 139 MMOL/L (135-145)
[2019-07-25 07:26] LABS: GLUCOSE 45 MG/DL (70-105)
[2019-07-25] MEDS ORDERED: DEXTROSE 50% 50 ML (IMS) SYR ONE (07:26)
[2019-07-25] MEDS ORDERED: DEXTROSE 50% 50 ML (IMS) SYR IV NR (07:45)
[2019-07-25 08:00] VITALS: BP 148/79
[2019-07-25] MEDS ORDERED: ACETAMINOPHEN 325 MG TABLET PO PRN (08:00)
[2019-07-25] MEDS ORDERED: BISACODYL 10 MG SUPP (DULCOLAX) PR PRN (08:00)
[2019-07-25] MEDS ORDERED: POLYETHYLENE GLYCOL 17 GM (MIRALAX) PACK PO PRN (08:00)
[2019-07-25] MEDS ORDERED: ONDANSETRON 4 MG (ZOFRAN) ORAL DISSOLVE TAB PO PRN (08:00)
[2019-07-25] MEDS ORDERED: MELATONIN 3 MG TABLET PO PRN (08:00)
[2019-07-25] MEDS: DOCUSATE SODIUM 100 MG (COLACE) CAP PO SCH ×2 (09:18→21:03)
[2019-07-25] MEDS: SENNOSIDES 8.6 MG (SENOKOT) TAB PO SCH ×2 (09:19→21:03)
--- NOTE | 2019-07-25 09:23 | Progress Note - Hospitalist ---
Subjective HPI/CC On Admission Date Seen by Provider: Jul 25, 2019 Time Seen by Provider: 08:55 Violeta Ewing is a 54-year-old female with past medical history of morbid obesity with LAP-BAND in place who presented with intractable nausea and vomiting. She reports that she has been having issues with nausea and vomiting for several days. She also reports that she felt like her LAP-BAND slipped out of place. She denies any fevers or chills. She denies any abdominal pain. She denies any chest pain or shortness of breath. Denies any diarrhea. She reports that she had a a surgery with Dr. Goldsmith a month or 2 ago and when she removed her appendix. She was later told that her LAP-BAND would have to be removed. Subjective/Events-last exam She continues to have nausea and vomiting. She continues to have abdominal pain. She denies any fevers or chills. She denies any chest pain or shortness of breath. Objective Exam Vital Signs Vital Signs Date Time Temp Pulse Resp B/P (MAP) Pulse Ox O2 Delivery O2 Flow Rate FiO2 07/25/19 08:00 36.5 75 18 148/79 (102) 97 Room Air Capillary Refill : Less Than 3 Seconds General Appearance: No Apparent Distress, WD/WN HEENT: PERRL/EOMI, Pharynx Normal Neck: Normal Inspection, Supple Respiratory: Lungs Clear, Normal Breath Sounds, No Respiratory Distress Cardiovascular: Regular Rate, Rhythm, No Edema, No Murmur Gastrointestinal: Normal Bowel Sounds, Soft, Tenderness Extremity: Normal Inspection, Non Tender, No Pedal Edema Neurologic/Psychiatric: Alert, Oriented x3, No Motor/Sensory Deficits Skin: Warm/Dry, Pallor Results/Procedures Lab Laboratory Tests 07/25/19 05:42 Patient resulted labs reviewed. Imaging: Reviewed Imaging Report Assessment/Plan Assessment and Plan Assess & Plan/Chief Complaint Intractable nausea and vomiting Possible lap band complication Hypothyroidism Hypoglycemia Antiemetics ordered CT scan and with no signs of gastroenteritis or other intra-abdominal complication General surgery consulted, Dr. Goldsmith planning for diagnostic laparoscopy tomorrow with lap band removal Begin D5W Acute kidney injury, resolved Diagnosis/Problems Diagnosis/Problems (1) Intractable nausea and vomiting Status: Acute (2) History of laparoscopic adjustable gastric banding Status: Chronic (3) Acute kidney injury Status: Resolved Resolution Date/Time: 07/25/19 @ 09:22 (4) Hypoglycemia Status: Acute Clinical Quality Measures DVT/VTE Risk/Contraindication: Risk Factor Score Per Nursin RFS Level Per Nursing on Admit: 1=Low/No VTE PPX JERSON MARI MD Jul 25, 2019 09:23
[2019-07-25] MEDS: D5 NS 1000 ML IV SOLUTION 1,000 ML IV SCH ×2 (09:38→14:54)
[2019-07-25] MEDS: PANTOPRAZOLE 40 MG (PROTONIX) VIAL IV SCH (09:38)
--- NOTE | 2019-07-25 10:16 | Progress Note ---
Subjective Date Seen by a Provider: Jul 25, 2019 Time Seen by a Provider: 10:00 Subjective/Events-last exam doing ok. appears comfortable. intermittent nausea and vomiting. no fever chills. Objective Exam Vital Signs Date Time Temp Pulse Resp B/P (MAP) Pulse Ox O2 Delivery O2 Flow Rate FiO2 07/25/19 08:00 36.5 75 18 148/79 (102) 97 Room Air 07/25/19 04:05 36.6 77 16 143/81 (101) 94 Room Air 07/24/19 23:45 36.1 76 16 153/85 (107) 98 Room Air 07/24/19 20:34 36.6 77 20 143/65 (91) 98 Room Air 07/24/19 20:00 Room Air 07/24/19 16:21 37.1 71 22 124/51 (75) 98 Room Air 07/24/19 12:14 36.6 72 20 132/61 (84) 97 Room Air I & O 07/25/19 07:00 Intake Total 4390 ml Output Total 600 ml Balance 3790 ml Capillary Refill : Less Than 3 Seconds General Appearance: No Apparent Distress HEENT: PERRL/EOMI Neck: Full Range of Motion Respiratory: Chest Non Tender, Lungs Clear, Normal Breath Sounds Cardiovascular: Regular Rate, Rhythm Gastrointestinal: normal bowel sounds, soft, tenderness Extremity: Normal Capillary Refill Neurologic/Psychiatric: Alert, Oriented x3 Skin: Normal Color Lymphatic: No Adenopathy Results Lab Laboratory Tests 07/25/19 05:42: White Blood Count 6.7, Red Blood Count 4.16L, Hemoglobin 9.0L, Hematocrit 31L, Mean Corpuscular Volume 75L, Mean Corpuscular Hemoglobin 22L, Mean Corpuscular Hemoglobin Concent 29L, Red Cell Distribution Width 15.9H, Platelet Count 282, Mean Platelet Volume 11.1H, Sodium Level 139, Potassium Level 4.0, Chloride Level 108H, Carbon Dioxide Level 21, Anion Gap 10, Blood Urea Nitrogen 6L, Creatinine 0.55L, Estimat Glomerular Filtration Rate > 60, BUN/Creatinine Ratio 11, Glucose Level 45*L, Calcium Level 7.9L, Magnesium Level 1.9 Assessment/Plan Assessment/Plan Assess & Plan/Chief Complaint persistent nausea/vomiting and abd pain. diagnostic laparoscopy and band removal wed. Clinical Quality Measures DVT/VTE Risk/Contraindication: Risk Factor Score Per Nursin RFS Level Per Nursing on Admit: 1=Low/No VTE PPX MILAD SARGENT MD Jul 25, 2019 10:16
--- NOTE | 2019-07-25 10:22 | Progress Note-Pre Operative ---
Pre-Operative Progress Note H&P Reviewed The H&P was reviewed, patient examined and no changes noted. Date Seen by Provider: Jul 25, 2019 Time Seen by Provider: 10:20 Date H&P Reviewed: Jul 25, 2019 Time H&P Reviewed: 10:20 Pre-Operative Diagnosis: persistent nausea/vomiting and abdominal pain. MILAD SARGENT MD Jul 25, 2019 10:22
[2019-07-25 12:00] VITALS: BP 129/77
[2019-07-25] MEDS: KETOROLAC 30 MG/ML VIAL IV PRN ×2 (14:53→21:24)
[2019-07-25 15:18] VITALS: BP 130/75
[2019-07-25 20:00] VITALS: BP 137/65
[2019-07-26] VITALS (12 sets, daily range): BP systolic 100–158; BP diastolic 50–81
[2019-07-26] MEDS: D5 NS 1000 ML IV SOLUTION 1,000 ML IV SCH (00:56)
[2019-07-26] MEDS: PROMETHAZINE INJ 25 MG/ML (PHENERGAN) AMP IV PRN (04:20)
[2019-07-26 04:35] LABS: HEMOGLOBIN 8.7 G/DL (11.5-16.0)
[2019-07-26 04:54] LABS: BUN/CREATININE RATIO 6; CALCIUM 7.7 MG/DL (8.5-10.1); CARBON DIOXIDE 28 MMOL/L (21-32); CHLORIDE 105 MMOL/L (98-107); CREATININE SERUM 0.52 MG/DL (0.60-1.30); GFR ESTIMATED > 60; GLUCOSE 95 MG/DL (70-105); POTASSIUM 2.9 MMOL/L (3.6-5.0); SODIUM 141 MMOL/L (135-145)
[2019-07-26] MEDS ORDERED: D5 1/2 NS W/KCL 20 MEQ/L 1,000 ML IV SCH (07:30)
[2019-07-26] MEDS ORDERED: CATHETER FLUSH 10 ML SYR IV PRN (07:45)
[2019-07-26] MEDS: POTASSIUM CL 10MEQ/50ML IVPB 50 ML IV SCH ×4 (07:51→11:13)
[2019-07-26] MEDS: PANTOPRAZOLE 40 MG (PROTONIX) VIAL IV SCH (08:10)
[2019-07-26] MEDS: ONDANSETRON 4 MG/2 ML (SDV) Z0FRAN IV PRN (08:18)
[2019-07-26] MEDS: fentaNYL INJECTION 100 MCG/2 ML AMP IV PRN (10:17)
[2019-07-26] MEDS: DOCUSATE SODIUM 100 MG (COLACE) CAP PO SCH (10:46)
[2019-07-26] MEDS: SENNOSIDES 8.6 MG (SENOKOT) TAB PO SCH (10:46)
--- NOTE | 2019-07-26 11:13 | Progress Note - Hospitalist ---
Subjective HPI/CC On Admission Date Seen by Provider: Jul 26, 2019 Time Seen by Provider: 09:45 Violeta Ewing is a 54-year-old female with past medical history of morbid obesity with LAP-BAND in place who presented with intractable nausea and vomiting. She reports that she has been having issues with nausea and vomiting for several days. She also reports that she felt like her LAP-BAND slipped out of place. She denies any fevers or chills. She denies any abdominal pain. She denies any chest pain or shortness of breath. Denies any diarrhea. She reports that she had a a surgery with Dr. Goldsmith a month or 2 ago and when she removed her appendix. She was later told that her LAP-BAND would have to be removed. Subjective/Events-last exam She continues to have nausea and vomiting. She continues to have abdominal pain. She denies any fevers or chills. She denies any chest pain or shortness of breath. Objective Exam Vital Signs Vital Signs Date Time Temp Pulse Resp B/P (MAP) Pulse Ox O2 Delivery O2 Flow Rate FiO2 07/26/19 08:00 Room Air 07/26/19 08:00 36.6 80 20 136/79 (98) 95 Capillary Refill : NONELess Than 3 Seconds General Appearance: No Apparent Distress, Other (Uncomfortable) HEENT: PERRL/EOMI, Pharynx Normal Neck: Normal Inspection, Supple Respiratory: Lungs Clear, Normal Breath Sounds, No Respiratory Distress Cardiovascular: Regular Rate, Rhythm, No Edema, No Murmur Gastrointestinal: Normal Bowel Sounds, Soft, Tenderness Extremity: Normal Inspection, Non Tender, No Pedal Edema Neurologic/Psychiatric: Alert, Oriented x3, No Motor/Sensory Deficits, Depressed Affect Skin: Warm/Dry, Pallor Results/Procedures Lab Laboratory Tests 07/26/19 04:25 Patient resulted labs reviewed. Imaging: Reviewed Imaging Report Assessment/Plan Assessment and Plan Assess & Plan/Chief Complaint Intractable nausea and vomiting Possible lap band complication Hypothyroidism Antiemetics ordered CT scan and with no signs of gastroenteritis or other intra-abdominal complication General surgery consulted, Dr. Goldsmith planning for diagnostic laparoscopy today with lap band removal Continue fluids Acute kidney injury, resolved Hypoglycemia, resolved Diagnosis/Problems Diagnosis/Problems (1) Intractable nausea and vomiting Status: Acute (2) History of laparoscopic adjustable gastric banding Status: Chronic (3) Acute kidney injury Status: Resolved Resolution Date/Time: 07/25/19 @ 09:22 (4) Hypoglycemia Status: Resolved Resolution Date/Time: 07/26/19 @ 11:13 Clinical Quality Measures DVT/VTE Risk/Contraindication: Risk Factor Score Per Nursin RFS Level Per Nursing on Admit: 1=Low/No VTE PPX JERSON MARI MD Jul 26, 2019 11:13
[2019-07-26] MEDS ORDERED: LIDOCAINE PF 2% 5 ML (XYLOCAINE) VIAL ONE (11:20)
[2019-07-26] MEDS ORDERED: proPOfol 200 MG/20 ML (DIPRIVAN) VIAL IV ONE (11:20)
[2019-07-26] MEDS ORDERED: ROCURONIUM 10 MG/ML 5 ML SYRINGE IV ONE (11:20)
[2019-07-26] MEDS ORDERED: DEXAMETHASONE 10 MG/ML (DECADRON) 1 ML VIAL ONE (11:20)
[2019-07-26] MEDS ORDERED: SEVOFLURANE (ULTANE) 15 ML INHAL SOLN ONE ×4 (11:20→13:46)
[2019-07-26] MEDS ORDERED: ONDANSETRON 4 MG/2 ML (SDV) Z0FRAN ONE (11:20)
[2019-07-26] MEDS ORDERED: fentaNYL INJECTION 100 MCG/2 ML AMP ONE (11:20)
[2019-07-26] MEDS ORDERED: MIDAZOLAM 2 MG/2 ML (VERSED) VIAL ONE (11:20)
[2019-07-26] MEDS ORDERED: LACTATED RINGERS 1,000 ML IV PRN (11:22)
[2019-07-26] MEDS ORDERED: BUP/EPI 0.5% 1:200,000 (SENSORCAINE) 30 ML VIAL ONE (12:11)
[2019-07-26] MEDS ORDERED: GLYCOPYRROLATE 0.2 MG/ML (ROBINUL) 2 ML VIAL ONE (12:20)
[2019-07-26] MEDS ORDERED: NEOSTIGMINE 3 MG/3 ML VIAL ONE (12:20)
--- NOTE | 2019-07-26 13:09 | NUR ---
Pt taken to surgery at this time
[2019-07-26] MEDS ORDERED: ceFAZolin INJECTION 2,000 MG ONE (13:15)
[2019-07-26] MEDS ORDERED: morphine INJ 10 MG/ML 1ML (SYR OR VIAL) ONE (13:26)
[2019-07-26] MEDS ORDERED: SUCCINYLCHOLINE INJ 100 MG/5 ML SYR ONE (13:39)
[2019-07-26] MEDS ORDERED: meTOprolol 5 MG/5 ML (LOPRESSOR) VIAL ONE (13:55)
--- NOTE | 2019-07-26 14:08 | Progress Note-Post Operative ---
Post-Operative Progess Note Surgeon (s)/Rail Equipment Operator (s) Surgeon MILAD SARGENT MD Rail Equipment Operator: none Pre-Operative Diagnosis persistent nausea/vomiting and abdominal pain. Post-Operative Diagnosis gastric outlet obstruction secondary inferior displaced gastric restrictive device. Procedure & Operative Findings Date of Procedure 07/26/19 Procedure Performed/Findings diagnostic laparoscopy. removal gastric restrictive device and subcutaneous reservoir. Anesthesia Type get Estimated Blood Loss Estimated blood loss (mL): minimal Specimens/Packing Specimens Removed none MILAD SARGENT MD Jul 26, 2019 14:08
--- NOTE | 2019-07-26 14:10 | Discharge Inst-Surgical ---
D/C Lap Instructions-ARIE New, Converted, or Re-Newed RX: RX on Chart Follow Up Appt in 2 weeks Activity as tolerated No driving for 24 hours No driving while on pain medications Incentive Spirometry use every 2 hours while awake clear liquid diet for 3 days then slowly advance as tolerated. Symptoms to Report: Fever over 101 degree F, Nausea/Vomiting Infection Signs and Symptoms to report: Increased redness, Foul odor of wound, Increased drainage Bathing instructions: May shower Operative Area Clean/Dry; Keep incision clean/dry If any problems/questions: Contact your physician or go to Emergency Room MILAD SARGENT MD Jul 26, 2019 14:10
[2019-07-26] MEDS ORDERED: fentaNYL INJECTION 100 MCG/2 ML AMP IVP ONE (14:15)
[2019-07-26] MEDS ORDERED: morphine INJ 10 MG/ML 1ML (SYR OR VIAL) IVP ONE (14:15)
[2019-07-26] MEDS ORDERED: ONDANSETRON 4 MG/2 ML (SDV) Z0FRAN IVP PRN (14:15)
[2019-07-26] MEDS ORDERED: MEPERIDINE (DEMEROL) INJ 50 MG/ML IVP ONE (14:15)
--- NOTE | 2019-07-26 15:10 | NUR ---
HERBERTH Cano from recovery gave report. This RN will resume caring for pt at this time.
--- NOTE | 2019-07-26 23:20 | OPERATIVE REPORT ---
DATE OF SERVICE: 07/26/2019 ATTENDING PRIMARY CARE PHYSICIAN: Dr. Matt. PREOPERATIVE DIAGNOSES: Left upper abdominal quadrant pain, persistent nausea and vomiting. POSTOPERATIVE DIAGNOSES: Gastric outlet obstruction secondary to inferior displaced gastric restrictive device. PROCEDURE: Removal of gastric diagnostic laparoscopy, laparoscopic removal of gastric restrictive device and subcutaneous reservoir. SURGEON: Milad Sargent MD ANESTHESIA: General endotracheal. ESTIMATED BLOOD LOSS: Minimal. FINDINGS: Gastric outlet obstruction secondary to inferior displaced gastric restrictive device. DISPOSITION: The patient tolerated the procedure well. INDICATIONS: The patient is a 54-year-old female, who has had periumbilical pain associated with nausea, vomiting, reflux and regurgitation issues. A CT scan was performed, which did show an appendix along the upper limits of normal. This was controlled by medication and when she was discharged home; however, returned two days later with worsening pain in the right lower abdominal quadrant and underwent a diagnostic laparoscopy and appendectomy. She again has had significant nausea and vomiting during her previous laparoscopy appeared that she had had an inferior displaced gastric band and she states that she is able to tolerate some liquids at times; however, none on other times. She also has frequent regurgitation. DESCRIPTION OF PROCEDURE: The patient was brought to the operating room, laid supine on the table. After adequate IV pain and sedative medications and general endotracheal intubation, the abdomen was prepped and draped in standard surgical fashion. A 0.5% Marcaine with epinephrine was used to anesthetize overlying skin in the left upper abdominal quadrant and a transverse skin incision made using 15 blade. An 0 silk suture was applied to the medial aspect of the incision for retraction and a Veress needle inserted with low opening pressure of 0 mmHg and the abdomen was then insufflated to 15 mmHg pressure. The Veress needle removed and a 5 mm XL trocar placed followed by a 5 mm 45-degree angle laparoscope visualizing the peritoneal cavity. A 4-quadrant abdominal exploration was performed. There appeared to be a gastric outlet obstruction due to gastric restrictive device, which had displaced inferiorly. There were no ischemic changes. No intraabdominal inflammatory changes. Under direct visualization, we then proceeded to place a midabdominal left midline 10 mm port after the skin and peritoneal lining were anesthetized using 0.5% Marcaine with epinephrine and a transverse skin incision made using 15 blade. In a similar manner, a midabdominal right of midline 5 mm port was placed. The patient was then placed in steep reverse Trendelenburg position. The buckle of the gastric restrictive device was then undone and then completely removed around the stomach. There were no erosions identified. There were also no ischemic changes identified. The tubing was then cut with EndoShears and removed through the 10 mm port site. Good hemostasis was observed. The fascia and peritoneum to the 10 mm port site were then closed under direct visualization using Raymundo-Julio device and 0 Vicryl suture. The abdomen was then desufflated and remaining ports removed. All skin incisions were closed using 4-0 Monocryl running subcuticular sutures. Wounds were then cleaned and covered with Dermabond. The patient tolerated the procedure well. We will start a clear liquid diet as well as IV normal pain medication and when she is tolerating clears, has good pain control with oral pain medications, ambulating well and she may be discharged home. We will recommend that she proceed with a phase I clear liquid diet for the next 3 days and then slowly advance as tolerated from that point forward. Job ID: [id number] DocumentID: [id number] Dictated Date: 07/26/2019 14:15:46 Velvet Weaver Date: 07/26/2019 23:19:24 Dictated By: MILAD SARGENT MD MTDD
== END 2019-07-26 16:50 | disposition home or self-care (01) ==
LOC: EDUNIT# 11:47 → ER 11:49 → 4TH 16:32
PROVIDERS: ADMIT Family Medicine; ATTEND Family Medicine
DX: K59.09 Other constipation (principal); K31.1 Adult hypertrophic pyloric stenosis; I10 Essential (primary) hypertension; E87.6 Hypokalemia; E66.9 Obesity, unspecified; N17.9 Acute kidney failure, unspecified; M19.90 Unspecified osteoarthritis, unspecified site; F32.9 Major depressive disorder, single episode, unspecified; Z98.51 Tubal ligation status; Z90.89 Acquired absence of other organs; Z90.710 Acquired absence of both cervix and uterus; Z98.84 Bariatric surgery status
CPT/HCPCS: 36415; 71045; 74177; 76937; 80048; 80053; 81000; 82728; 82962; 83540; 83735; 85007; 85014; 85018; 85025; 85027; 86141; 93005; 96361; 96374; 96375; G0378